=== PATIENT | male | born 1945 | race Caucasian/White ===

== ENCOUNTER 2021-09-02 11:46 | Emergency (ER) | payer MEDICARE, OTHER ==
[2021-09-02 12:00] VITALS: RESP 18
[2021-09-02 12:38] LABS: Basophils # (A) 0.1 k/uL (0-0.2); Basophils % (A) 1 %; Eosinophils # (A) 0.1 k/uL (0-0.7); Eosinophils % (A) 2 %; HCT 26.2 % (39.0-53.0); Hypochromasia Slight; Lymphocytes # (A) 1.1 k/uL (1.0-4.8); Lymphocytes % (A) 16 %; MCH 32.9 pg (25.0-35.0); MCHC 30.6 g/dL (31.0-37.0); MCV 107.4 fL (80.0-100.0); Macrocytosis Moderate; Mean Platelet Volume 7.7; Monocytes # (A) 0.4 k/uL (0-1.0); Monocytes % (A) 6 %; Neutrophils # (A) 5.3 k/uL (1.3-7.7); Neutrophils % (A) 74 %; Platelet Count 395 k/uL (150-450); RBC 2.44 m/uL (4.30-5.90); RDW 13.1 % (11.5-15.5); WBC 7.3 k/uL (3.8-10.6)
[2021-09-02 12:49] LABS: Total Bilirubin 0.3 mg/dL (0.2-1.3); Total Protein 6.6 g/dL (6.3-8.2)
--- NOTE | 2021-09-02 12:58 | ED ---
General Adult HPI - General Chief complaint: Recheck/Abnormal Lab/Rx Stated complaint: ABN labs Time Seen by Provider: 09/02/21 12:29 Source: patient, RN notes reviewed Mode of arrival: ambulatory Limitations: no limitations - History of Present Illness Initial comments: 76-year-old male presents emergency Department with chief complaint of abnormal labs. Patient states he received a phone call today stating that his potassium from yesterday was 7.0. Patient has no complaints. Patient does state that he has some renal dysfunction which she is followed by nephrology is not on dialysis. He states every morning Wednesday he takes symptoms her medication to help with that. Patient denies any palpitations no recent nausea vomiting diarrhea constipation does not take any potassium supplements. - Related Data Allergies Allergy/AdvReac Type Severity Reaction Status Date / Time No Known Allergies Allergy Verified 09/02/21 12:00 Review of Systems ROS Statement: Those systems with pertinent positive or pertinent negative responses have been documented in the HPI. ROS Other: All systems not noted in ROS Statement are negative. Past Medical History Past Medical History: Diabetes Mellitus, Myocardial Infarction ([place]) History of Any Multi-Drug Resistant Organisms: None Reported Past Surgical History: Heart Catheterization Additional Past Surgical History / Comment(s): upper/lower scope. Past Psychological History: No Psychological Hx Reported Smoking Status: Current every day smoker Past Alcohol Use History: Occasional Past Drug Use History: None Reported General Exam Limitations: no limitations General appearance: alert, in no apparent distress Head exam: Present: atraumatic, normocephalic, normal inspection Eye exam: Present: normal appearance, PERRL, EOMI. Absent: scleral icterus, conjunctival injection, periorbital swelling ENT exam: Present: normal exam, normal oropharynx, mucous membranes moist Neck exam: Present: normal inspection, full ROM. Absent: tenderness, meningismus, lymphadenopathy Respiratory exam: Present: normal lung sounds bilaterally. Absent: respiratory distress, wheezes, rales, rhonchi, stridor Cardiovascular Exam: Present: regular rate, normal rhythm, normal heart sounds. Absent: systolic murmur, diastolic murmur, rubs, gallop, clicks Neurological exam: Present: alert, oriented X3, CN II-XII intact Skin exam: Present: warm, dry, intact, normal color. Absent: rash Course Vital Signs 09/02/21 11:57 Temperature 98 F Pulse Rate 68 Respiratory 18 Rate Blood Pressure 185/69 O2 Sat by Pulse 100 Oximetry EKG Findings - EKG Comments: EKG Findings:: EKG performed at 1207 sinus rhythm with rate of 62, FL 180 QRS 105 QT/QTC 404/410 Medical Decision Making - Medical Decision Making 76-year-old male presented for hyperkalemia. Potassium 6.5. Patient will require multiple medications, treatment for hyperkalemia. Patiently admitted for recheck and meds. - Lab Data Result diagrams: 09/02/21 12:28 09/02/21 12:28 Lab Results 09/02/21 09/02/21 Range/Units 12:28 12:28 WBC 7.3 (3.8-10.6) k/uL RBC 2.44 L (4.30-5.90) m/uL Hgb 8.0 L (13.0-17.5) gm/dL Hct 26.2 L (39.0-53.0) % MCV 107.4 H (80.0-100.0) fL MCH 32.9 (25.0-35.0) pg MCHC 30.6 L (31.0-37.0) g/dL RDW 13.1 (11.5-15.5) % Plt Count 395 (150-450) k/uL MPV 7.7 Neutrophils % 74 % Lymphocytes % 16 % Monocytes % 6 % Eosinophils % 2 % Basophils % 1 % Neutrophils # 5.3 (1.3-7.7) k/uL Lymphocytes # 1.1 (1.0-4.8) k/uL Monocytes # 0.4 (0-1.0) k/uL Eosinophils # 0.1 (0-0.7) k/uL Basophils # 0.1 (0-0.2) k/uL Hypochromasia Slight Macrocytosis Moderate Sodium 138 (137-145) mmol/L Potassium 6.5 H* (3.5-5.1) mmol/L Chloride 110 H (98-107) mmol/L Carbon Dioxide 20 L (22-30) mmol/L Anion Gap 8 mmol/L BUN 62 H (9-20) mg/dL Creatinine 2.48 H (0.66-1.25) mg/dL Est GFR (CKD-EPI)AfAm 29 (>60 ml/min/1.73 sqM) Est GFR (CKD-EPI)NonAf 25 (>60 ml/min/1.73 sqM) Glucose 227 H (74-99) mg/dL Calcium 9.0 (8.4-10.2) mg/dL Total Bilirubin 0.3 (0.2-1.3) mg/dL AST 23 (17-59) U/L ALT 31 (4-49) U/L Alkaline Phosphatase 62 (38-126) U/L Total Protein 6.6 (6.3-8.2) g/dL Albumin 4.0 (3.5-5.0) g/dL Disposition Clinical Impression: Hyperkalemia Disposition: ADMITTED IP TO THIS HOSP Condition: Fair Referrals: Kirby Meng MD [Primary Care Provider] - 1-2 days Time of Disposition: 13:19
[2021-09-02 12:59] LABS: Potassium 6.5 mmol/L (3.5-5.1)
[2021-09-02] MEDS ORDERED: SODIUM POLYSTYRENE SULFONATE 15 GM/60 ML BOTTLE PO ONE (13:17)
[2021-09-02] MEDS ORDERED: DEXTROSE 50% SYRINGE 50 ML IVP ONE (13:17)
[2021-09-02] MEDS ORDERED: INSULIN REGULAR 100 UNIT/ML VIAL (IV) IV ONE (13:17)
[2021-09-02] MEDS ORDERED: NALOXONE 0.4 MG/ML 1 ML VIAL IV PRN (13:19)
[2021-09-02] MEDS ORDERED: ACETAMINOPHEN TAB 325 MG TAB PO PRN (13:19)
[2021-09-02] MEDS ORDERED: ALBUTEROL NEB (CONC) 2.5 MG/0.5 ML INHALATION ONE (13:24)
--- NOTE | 2021-09-02 13:26 | ED ---
Medical Decision Making - Medical Decision Making I did discuss case with . recommends patient receive medications while recheck tomorrow. - Lab Data Result diagrams: 09/02/21 12:28 09/02/21 12:28 Lab Results 09/02/21 09/02/21 Range/Units 12:28 12:28 WBC 7.3 (3.8-10.6) k/uL RBC 2.44 L (4.30-5.90) m/uL Hgb 8.0 L (13.0-17.5) gm/dL Hct 26.2 L (39.0-53.0) % MCV 107.4 H (80.0-100.0) fL MCH 32.9 (25.0-35.0) pg MCHC 30.6 L (31.0-37.0) g/dL RDW 13.1 (11.5-15.5) % Plt Count 395 (150-450) k/uL MPV 7.7 Neutrophils % 74 % Lymphocytes % 16 % Monocytes % 6 % Eosinophils % 2 % Basophils % 1 % Neutrophils # 5.3 (1.3-7.7) k/uL Lymphocytes # 1.1 (1.0-4.8) k/uL Monocytes # 0.4 (0-1.0) k/uL Eosinophils # 0.1 (0-0.7) k/uL Basophils # 0.1 (0-0.2) k/uL Hypochromasia Slight Macrocytosis Moderate Sodium 138 (137-145) mmol/L Potassium 6.5 H* (3.5-5.1) mmol/L Chloride 110 H (98-107) mmol/L Carbon Dioxide 20 L (22-30) mmol/L Anion Gap 8 mmol/L BUN 62 H (9-20) mg/dL Creatinine 2.48 H (0.66-1.25) mg/dL Est GFR (CKD-EPI)AfAm 29 (>60 ml/min/1.73 sqM) Est GFR (CKD-EPI)NonAf 25 (>60 ml/min/1.73 sqM) Glucose 227 H (74-99) mg/dL Calcium 9.0 (8.4-10.2) mg/dL Total Bilirubin 0.3 (0.2-1.3) mg/dL AST 23 (17-59) U/L ALT 31 (4-49) U/L Alkaline Phosphatase 62 (38-126) U/L Total Protein 6.6 (6.3-8.2) g/dL Albumin 4.0 (3.5-5.0) g/dL Disposition Clinical Impression: Hyperkalemia Disposition: HOME SELF-CARE Condition: Stable Is patient prescribed a controlled substance at d/c from ED?: No Time of Disposition: 13:25
[2021-09-02] MEDS ORDERED: SODIUM CHLORIDE 0.9% 1,000 ML IV SCH (13:30)
[2021-09-02] MEDS ORDERED: CALCIUM GLUCONATE IN NACL 1 GM in SALINE 1 100ML.BAG IVPB ONE (13:45)
[2021-09-02] MEDS ORDERED: ALBUTEROL NEBULIZED 2.5 MG/3 ML INHALATION STA (14:01)
[2021-09-02 14:32] VITALS: PULSE 84
[2021-09-02 14:35] VITALS: BP 188/71; TEMP 97.6
== END 2021-09-02 14:40 | disposition home or self-care (01) ==
LOC: EC 11:46 → UNDOADMIN 13:17 → 3SCARD 13:17 → EC 14:40
DX: E87.5 Hyperkalemia (principal); E11.9 Type 2 diabetes mellitus without complications; I25.2 Old myocardial infarction; F17.200 Nicotine dependence, unspecified, uncomplicated
CPT/HCPCS: 99284; 96374; 96375 ×2; 36415; 94640 ×2; 93005; 80053; 85025; J0610

== ENCOUNTER 2021-10-28 06:55 | Day surgery (SDC) | payer MEDICARE, OTHER ==
[2021-10-24 14:43] VITALS: BMI 22.0
[~2021-10-28 06:55] MED LIST: LACTATED RINGERS 1,000 ML IV SCH; LIDOCAINE 1% (10MG/ML) FOR IV START INTRADERMA PRN
[2021-10-28 07:29] VITALS: TEMP 97.2
[2021-10-28 07:54] LABS: Glucose,Whole Blood 180 mg/dL (75-99)
[2021-10-28] MEDS ORDERED: LIDOCAINE 2% INJ 20 MG/ML (2 ML VIAL) ONE (08:19)
[2021-10-28] MEDS ORDERED: PROPOFOL 10 MG/ML 20 ML VIAL IV ONE (08:19)
[2021-10-28] MEDS ORDERED: fentaNYL (PF) 50 MCG/ML 2 ML AMP ONE (08:19)
--- NOTE | 2021-10-28 08:57 | P.PCN ---
Date of Procedure: 10/28/21 Procedure(s) Performed: Brief history: Patient is a pleasant 76-year-old white female scheduled for an elective upper endoscopy as well as colonoscopy as a part of evaluation of recurrent iron deficiency anemia. 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 In the last 6 months he received 3 years of PRBC transfusion for recurrent iron deficiency anemia and hence is scheduled for repeat upper endoscopy as well as colonoscopy today. Procedure performed: Esophagogastroduodenoscopy with biopsy and cautery Colonoscopy with cautery and argon plasma coagulation/snare polypectomy Preoperative diagnosis: Recurrent iron deficiency anemia and history of gastric and cecal AVMs Anesthesia: MAC Procedure: After informed consent was obtained from the patient was brought into the endoscopy unit and IV sedation was administered by anesthesia under continuous monitoring. Initially upper endoscopy was done. The Olympus GF 160 video endoscope was inserted inserted into the mouth and esophagus intubated without any difficulty and was gradually advanced into the stomach and duodenum and carefully examined. The bulb and second part of the duodenum appeared normal. Biopsies were done from the duodenum to rule out celiac disease. The scope was then withdrawn into the stomach adequately insufflated with air and upon careful examination the antrum appeared normal. In the body the stomach daily 5 mm gastric AVMs with no active bleeding which were cauterized. The rest of the body, cardia and fundus appeared normal. The scope was then withdrawn into the esophagus. The GE junction was located at 40 cm to the incisors. It appeared regular with no erythema erosions or ulcerations. Rest of the esophagus appeared normal. Patient tolerated the procedure well. At this time the patient continued to remain sedation. Initial digital rectal examination was normal. Olympus CF 160 video colonoscope was then inserted into the rectum and gradually advanced to the cecum without any difficulty. Careful examination was performed as the scope was gradually being withdrawn. The prep was excellent. In the base of the cecum there was a 3-4 mm nonbleeding AVM that was cauterized using a photo. Adjacent to this area there was a 2 cm nonbleeding arteriovenous malformation noted which was coagulated using argon plasma with good hemostasis. In the hepatic flexure there was a 1 mm broad- based polyp removed by snare polypectomy. Rest of the transverse colon, descending colon, sigmoid colon and rectum appeared normal. Retroflexion was performed in the rectum and no lesions were noted. Patient tolerated the procedure well. Impression: 1. Upper endoscopy revealed two 5 mm nonbleeding gastric AVMs status post cautery as described above 2. Colonoscopy revealed 5 mm and 2 cm nonbleeding cecal AVMs status post cautery using a gold and argon plasma coagulation as described above. 1 cm hepatic flexure polyp status post polypectomy Recommendations: Findings of this examination were discussed with the patient as well a family. He was advised to follow with the biopsy results. He will continue with iron supplements and iron infusions. Follow up in office as needed.
[2021-10-28 09:15] VITALS: BP 160/72; PULSE 59; RESP 16
== END 2021-10-28 09:36 | disposition home or self-care (01) ==
LOC: ORWHC2ENDO 06:55
PROVIDERS: ATTEND Internal Medicine Gastroenterology
DX: D12.3 Benign neoplasm of transverse colon (principal); Q27.39 Arteriovenous malformation, other site; D50.9 Iron deficiency anemia, unspecified; I25.2 Old myocardial infarction; E78.5 Hyperlipidemia, unspecified; F17.210 Nicotine dependence, cigarettes, uncomplicated; E11.22 Type 2 diabetes mellitus with diabetic chronic kidney disease; I12.9 Hypertensive chronic kidney disease with stage 1 through stage 4 chronic kidney disease, or unspecified chronic kidney disease; N18.4 Chronic kidney disease, stage 4 (severe); K21.9 Gastro-esophageal reflux disease without esophagitis; Z79.84 Long term (current) use of oral hypoglycemic drugs; Z79.899 Other long term (current) drug therapy
CPT/HCPCS: 88305; 45385; 43239; 45388; 43270; J3010; J2704; J2001

== ENCOUNTER 2021-11-21 10:08 | Emergency (ER) | payer MEDICARE, OTHER ==
[2021-11-21 10:13] VITALS: RESP 16
[2021-11-21] MEDS ORDERED: SODIUM CHLORIDE 0.9% 1,000 ML IV STA (10:33)
--- NOTE | 2021-11-21 11:18 | ED ---
General Adult HPI - General Chief complaint: Recheck/Abnormal Lab/Rx Stated complaint: abn labs Time Seen by Provider: 11/21/21 10:14 Source: patient Mode of arrival: ambulatory Limitations: no limitations - History of Present Illness Initial comments: Patient is a 76-year-old male with a past medical history significant for iron deficiency anemia, gastric and cecal AVMs, and CKD stage IV who presents to the emergency department for evaluation of low hemogloglobin. 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 Patient states he got his blood drawn yesterday due to feeling weak and lightheaded over the past 2 weeks. Patient states he receives iron infusions, last was yesterday as well as takes oral iron pills. Patient denies fever, chills, shortness of breath, chest pain, abdominal pain, back pain, nausea, vomiting, blood in the urine, and blood in the stool. Admits to prior history of GI bleed. Has received blood transfusions in the past. Denies blood thinner use. States he takes Veltassa for high potassium however stopped the medication 1 week ago because urinating so much was interfering with his activities of daily living. Patient still making urine and denies dialysis. I reviewed the patient's history. He follows with GI specialist Dr. Almaguer. Patient had an elective upper endoscopy and colonoscopy on October 28 of this year for evaluation of recurrent iron deficiency anemia. At this time patient had history of gastric and cecal AVMs found in October 2020 which were cauterized. His repeat scope revealed 2 5 mm nonbleeding gastric AVMs that were cauterized as well as a 5 mm and 2 cm nonbleeding cecal AVM that were cauterized. A 1 cm hepatic flexure polyp was also found which was removed and negative for histologic abnormality on biopsy. - Related Data Home Medications Medication Instructions Recorded Confirmed Ergocalciferol [Vitamin D2 (1250 1,250 mcg PO WEEKLY 10/24/21 10/24/21 Mcg = 40313 Iu)] Ferrous Sulfate [Iron] 325 mg PO BID 10/24/21 10/24/21 Pantoprazole [Protonix] 40 mg PO BID 10/24/21 10/24/21 Patiromer Calcium Sorbitex 1 packet PO DAILY 10/24/21 10/24/21 [Veltassa] Pioglitazone [Actos] 15 mg PO DAILY 10/24/21 10/24/21 Rosuvastatin [Crestor] 0.5 tab PO DAILY 10/24/21 10/24/21 Sodium Bicarbonate 650 mg PO BID 10/24/21 10/24/21 Torsemide [Demadex] 0.5 tab PO DAILY 10/24/21 10/24/21 carvediloL [Coreg] 25 mg PO DAILY 10/24/21 10/24/21 glipiZIDE 5 mg PO BID 10/24/21 10/24/21 Allergies Allergy/AdvReac Type Severity Reaction Status Date / Time No Known Allergies Allergy Verified 11/21/21 10:09 Review of Systems ROS Statement: Those systems with pertinent positive or pertinent negative responses have been documented in the HPI. ROS Other: All systems not noted in ROS Statement are negative. Past Medical History Past Medical History: Diabetes Mellitus, GERD/Reflux, Hyperlipidemia, Hypertension, Myocardial Infarction ([place]), Renal Disease Last Myocardial Infarction Date:: UNSURE BUT AROUND 08/2021 History of Any Multi-Drug Resistant Organisms: None Reported Past Surgical History: Heart Catheterization Additional Past Surgical History / Comment(s): upper/lower scope. Past Anesthesia/Blood Transfusion Reactions: No Reported Reaction Past Psychological History: No Psychological Hx Reported Smoking Status: Current every day smoker Past Alcohol Use History: Occasional Past Drug Use History: None Reported General Exam Limitations: no limitations General appearance: alert, in no apparent distress Head exam: Present: atraumatic, normocephalic, normal inspection Eye exam: Present: normal appearance, PERRL, EOMI. Absent: scleral icterus, conjunctival injection, periorbital swelling Respiratory exam: Present: normal lung sounds bilaterally. Absent: respiratory distress, wheezes, rales, rhonchi, stridor Cardiovascular Exam: Present: regular rate, normal rhythm, normal heart sounds. Absent: systolic murmur, diastolic murmur, rubs, gallop, clicks GI/Abdominal exam: Present: soft, normal bowel sounds. Absent: distended, tenderness, guarding, rebound, rigid Rectal exam: Present: hemorrhoids (1 external ) Back exam: Present: normal inspection Neurological exam: Present: alert, oriented X3, CN II-XII intact Psychiatric exam: Present: normal affect, normal mood Skin exam: Present: warm, dry, intact, normal color. Absent: rash, pallor Course Vital Signs 11/21/21 11/21/21 11/21/21 10:09 11:03 11:52 Temperature 97.9 F Pulse Rate 78 64 69 Respiratory 16 16 16 Rate Blood Pressure 144/63 145/62 159/60 O2 Sat by Pulse 97 99 96 Oximetry 11/21/21 13:05 Temperature 98.7 F Pulse Rate 63 Respiratory 16 Rate Blood Pressure 164/65 O2 Sat by Pulse 98 Oximetry EKG Findings - EKG Comments: EKG Findings:: EKG taken at 10:45. Sinus rhythm, no ST segment or T-wave abnormalities. Ventricular rate 65. WA interval 182. QRS duration 100. QTC 408 Medical Decision Making - Medical Decision Making This is a 76-year-old male with iron deficiency anemia on supplemental iron and see kidney stage IV who presents to the emergency department for evaluation of low hemoglobin. Thorough history and examination were performed. Patient is well-appearing. Skin is normal in color without pallor. Denies chest pain and shortness of breath. Rectal exam revealed 1 external hemorrhoid and no palpation of internal hemorrhoids. Laboratory studies obtained. Creatinine is elevated at 2.63, consistent with patient's CKD stage IV. Potassium is elevated at 5.9. Hemoglobin is low at 6.4 Stool occult is positive. Patient received 1 unit of packed red blood cells in the emergency department. Unfortunately we do not have GI coverage today. Case discussed with Dr. Dela Cruz who declines admitting this patient to her service. Results discussed with patient and his . Patient verbalizes understanding and is agreeable to transfer for GI services. Case discussed with Dr. Becerra at [facility] who is agreeable to transfer for further evaluation and management of GI bleed. Patient transferred in stable condition. Dr. Hairston is my attending. - Lab Data Result diagrams: 11/21/21 10:48 11/21/21 10:48 Lab Results 11/21/21 11/21/21 11/21/21 Range/Units 10:48 10:48 10:48 WBC 6.4 (3.8-10.6) k/uL RBC 2.02 L (4.30-5.90) m/uL Hgb 6.4 L* (13.0-17.5) gm/dL Hct 20.2 L (39.0-53.0) % MCV 100.1 H (80.0-100.0) fL MCH 31.6 (25.0-35.0) pg MCHC 31.6 (31.0-37.0) g/dL RDW 15.8 H (11.5-15.5) % Plt Count 305 (150-450) k/uL MPV 7.4 Neutrophils % 74 % Lymphocytes % 14 % Monocytes % 6 % Eosinophils % 1 % Basophils % 1 % Neutrophils # 4.7 (1.3-7.7) k/uL Lymphocytes # 0.9 L (1.0-4.8) k/uL Monocytes # 0.4 (0-1.0) k/uL Eosinophils # 0.1 (0-0.7) k/uL Basophils # 0.0 (0-0.2) k/uL Hypochromasia Slight Macrocytosis Slight PT (9.0-12.0) sec INR (<1.2) APTT (22.0-30.0) sec Sodium 136 L (137-145) mmol/L Potassium 5.9 H (3.5-5.1) mmol/L Chloride 110 H (98-107) mmol/L Carbon Dioxide 21 L (22-30) mmol/L Anion Gap 5 mmol/L BUN 51 H (9-20) mg/dL Creatinine 2.63 H (0.66-1.25) mg/dL Est GFR (CKD-EPI)AfAm 27 (>60 ml/min/1.73 sqM) Est GFR (CKD-EPI)NonAf 23 (>60 ml/min/1.73 sqM) Glucose 163 H (74-99) mg/dL Calcium 8.6 (8.4-10.2) mg/dL Magnesium 2.0 (1.6-2.3) mg/dL Total Bilirubin 0.2 (0.2-1.3) mg/dL AST 18 (17-59) U/L ALT 21 (4-49) U/L Alkaline Phosphatase 63 (38-126) U/L Total Protein 5.7 L (6.3-8.2) g/dL Albumin 3.5 (3.5-5.0) g/dL Stool Occult Blood Positive (Negative) Blood Type Blood Type Confirm Blood Type Recheck Bld Type Recheck Status Antibody Screen Crossmatch Spec Expiration Date 11/21/21 11/21/21 11/21/21 Range/Units 10:54 10:59 11:02 WBC (3.8-10.6) k/uL RBC (4.30-5.90) m/uL Hgb (13.0-17.5) gm/dL Hct (39.0-53.0) % MCV (80.0-100.0) fL MCH (25.0-35.0) pg MCHC (31.0-37.0) g/dL RDW (11.5-15.5) % Plt Count (150-450) k/uL MPV Neutrophils % % Lymphocytes % % Monocytes % % Eosinophils % % Basophils % % Neutrophils # (1.3-7.7) k/uL Lymphocytes # (1.0-4.8) k/uL Monocytes # (0-1.0) k/uL Eosinophils # (0-0.7) k/uL Basophils # (0-0.2) k/uL Hypochromasia Macrocytosis PT 10.4 (9.0-12.0) sec INR 0.9 (<1.2) APTT 20.9 L (22.0-30.0) sec Sodium (137-145) mmol/L Potassium (3.5-5.1) mmol/L Chloride (98-107) mmol/L Carbon Dioxide (22-30) mmol/L Anion Gap mmol/L BUN (9-20) mg/dL Creatinine (0.66-1.25) mg/dL Est GFR (CKD-EPI)AfAm (>60 ml/min/1.73 sqM) Est GFR (CKD-EPI)NonAf (>60 ml/min/1.73 sqM) Glucose (74-99) mg/dL Calcium (8.4-10.2) mg/dL Magnesium (1.6-2.3) mg/dL Total Bilirubin (0.2-1.3) mg/dL AST (17-59) U/L ALT (4-49) U/L Alkaline Phosphatase (38-126) U/L Total Protein (6.3-8.2) g/dL Albumin (3.5-5.0) g/dL Stool Occult Blood (Negative) Blood Type A Positive Blood Type Confirm A Positive Blood Type Recheck No Previous Record Bld Type Recheck Status CABO Indicated Antibody Screen NEGATIVE Crossmatch See Detail Spec Expiration Date 11/24/20212353 Disposition Clinical Impression: Personal history of arterial venous malformation (AVM), Iron deficiency anemia, Generalized weakness, Occult GI bleeding, Lightheadedness, Hyperkalemia Disposition: OTHER INSTITUTION NOT DEFINED Condition: Stable Referrals: Carlos Taveras MD [Primary Care Provider] - 1-2 days Decision Time: 13:12 - Out of Hospital Transfer - Req. Specs Out of Hospital Transfer - Requested Specifics: Other Emergency Center ([facility] [place])
[2021-11-21 11:19] LABS: Basophils % (A) 1 %; Eosinophils # (A) 0.1 k/uL (0-0.7); Eosinophils % (A) 1 %; HCT 20.2 % (39.0-53.0); Hypochromasia Slight; Lymphocytes # (A) 0.9 k/uL (1.0-4.8); Lymphocytes % (A) 14 %; MCH 31.6 pg (25.0-35.0); MCHC 31.6 g/dL (31.0-37.0); MCV 100.1 fL (80.0-100.0); Macrocytosis Slight; Mean Platelet Volume 7.4; Monocytes # (A) 0.4 k/uL (0-1.0); Monocytes % (A) 6 %; Neutrophils # (A) 4.7 k/uL (1.3-7.7); Neutrophils % (A) 74 %; Platelet Count 305 k/uL (150-450); RBC 2.02 m/uL (4.30-5.90); RDW 15.8 % (11.5-15.5); WBC 6.4 k/uL (3.8-10.6)
[2021-11-21 11:21] LABS: Albumin 3.5 g/dL (3.5-5.0); Calcium 8.6 mg/dL (8.4-10.2); Potassium 5.9 mmol/L (3.5-5.1); Total Bilirubin 0.2 mg/dL (0.2-1.3); Total Protein 5.7 g/dL (6.3-8.2)
[2021-11-21] MEDS ORDERED: PANTOPRAZOLE 40 MG/10 ML VIAL IVP STA (11:27)
[2021-11-21 11:37] LABS: HGB 6.4 gm/dL (13.0-17.5)
[2021-11-21 12:20] LABS: INR 0.9 (<1.2); Prothrombin Time 10.4 sec (9.0-12.0)
[2021-11-21 12:37] LABS: Partial Thromboplastin Time 20.9 sec (22.0-30.0)
[2021-11-21 13:24] VITALS: BP 166/66; PULSE 64; TEMP 98.4
== END 2021-11-21 13:38 | disposition other institution (70) ==
LOC: EC 10:08
DX: E11.9 Type 2 diabetes mellitus without complications (principal); E78.5 Hyperlipidemia, unspecified; I10 Essential (primary) hypertension; K21.9 Gastro-esophageal reflux disease without esophagitis; Z79.83 Long term (current) use of bisphosphonates; F17.200 Nicotine dependence, unspecified, uncomplicated
CPT/HCPCS: 99283 ×2; 96374 ×2; 96361 ×2; 36430; 36415; 93005; 86900; 86901; 80053; 83735; 85025; 85610; 85730; 86850; 86920; 82272; P9016; C9113

== ENCOUNTER → 2021-12-11 | Outpatient (CLI) | payer MEDICARE, OTHER ==
--- NOTE | 2021-12-15 09:15 | US ---
EXAMINATION TYPE: US arterial LE multi level DATE OF EXAM: 12/11/2021 11:10 AM CLINICAL HISTORY: I73.9 Peripheral vascular disease, unspecified. PVD, cramping in BLE. History of hy pertension and diabetes. Bilateral lower extremity cramping when walking Doppler Waveforms: Right: Monophasic Left: Monophasic Ankle-Brachial Indices: Right: 1.2 Left: 0.86 Toe Brachial Indices: Right: 0.36 Left: 0.26 IMPRESSION: Diminished TBI values bilaterally with loss of phasicity is abnormal, at least moderate peripheral arterial disease in the bilateral feet are present.
== END | disposition home or self-care (01) ==
LOC: RADUSWWP 09:33
PROVIDERS: ATTEND Internal Medicine
DX: I70.203 Unspecified atherosclerosis of native arteries of extremities, bilateral legs (principal)
CPT/HCPCS: 93923

== ENCOUNTER → 2021-12-22 | Day surgery (SDC) | payer MEDICARE, OTHER ==
[2021-12-18 10:40] VITALS: BMI 22.6
[~2021-12-22] MED LIST changes: -LACTATED RINGERS 1,000 ML IV SCH; -LIDOCAINE 1% (10MG/ML) FOR IV START INTRADERMA PRN; +SIMETHICONE 40 MG/0.6 ML DROPS 2,000 MG/30 ML BOTTLE PO ONE
[2021-12-22 06:39] VITALS: BP 182/75; PULSE 67; RESP 18; TEMP 97.8
[2021-12-22 06:44] LABS: Glucose,Whole Blood 112 mg/dL (70-110)
== END ==
LOC: ORWHC2ENDO 06:20
PROVIDERS: ATTEND Internal Medicine Gastroenterology
DX: D64.9 Anemia, unspecified (principal); Z79.899 Other long term (current) drug therapy; Z79.84 Long term (current) use of oral hypoglycemic drugs
CPT/HCPCS: 91110

== ENCOUNTER 2021-12-28 10:46 | Inpatient (IN) | payer MEDICARE, OTHER ==
[2021-12-28] MEDS ORDERED: SODIUM CHLORIDE 0.9% 1,000 ML IV STA ×2 (12:39→14:21)
--- NOTE | 2021-12-28 12:46 | ED ---
GI Bleed HPI - General Chief complaint: GI Bleed Stated complaint: Rectal bleeding Time Seen by Provider: 12/28/21 12:14 Source: patient, RN notes reviewed Mode of arrival: wheelchair Limitations: no limitations - History of Present Illness Initial comments: 76-year-old male who is being worked up for GI bleeding Had some cauterization done of lesions in the colon and stomach in the past who states he had the onset 2 days ago of blood per rectum states was bright red he's felt tired and weak lightheaded with upright movement and ambulation. No chest pain no tachycardia no overt shortness of breath reported no fevers chills sweats. No overt abdominal pain. No rectal pain. He states she's had an ultrasound done of his lower extremities and also had a camper that he swallowed with unknown results this time. Per family he does appear pale compared with usual color. Review of old charting shows that the patient has had a history of anemia in the past. He also has a history of chronic kidney disease. The patient and family also note some ankle edema the patient states he hasn't taken his water pill. - Related Data Home Medications Medication Instructions Recorded Confirmed Ergocalciferol [Vitamin D2 (1250 1,250 mcg PO GA 10/24/21 12/18/21 Mcg = 87437 Iu)] Ferrous Sulfate [Iron] 325 mg PO BID 10/24/21 12/18/21 Pantoprazole [Protonix] 40 mg PO BID 10/24/21 12/18/21 Pioglitazone [Actos] 15 mg PO DAILY 10/24/21 12/18/21 Rosuvastatin [Crestor] 0.5 tab PO DAILY 10/24/21 12/18/21 Sodium Bicarbonate 650 mg PO BID 10/24/21 12/18/21 Torsemide [Demadex] 0.5 tab PO DAILY 10/24/21 12/18/21 carvediloL [Coreg] 25 mg PO DAILY 10/24/21 12/18/21 glipiZIDE 5 mg PO BID 10/24/21 12/18/21 Allergies Allergy/AdvReac Type Severity Reaction Status Date / Time No Known Allergies Allergy Verified 12/28/21 10:52 Review of Systems ROS Statement: Those systems with pertinent positive or pertinent negative responses have been documented in the HPI. ROS Other: All systems not noted in ROS Statement are negative. Past Medical History Past Medical History: Diabetes Mellitus, GERD/Reflux, Hyperlipidemia, Hypertension, Myocardial Infarction ([place]), Renal Disease Last Myocardial Infarction Date:: UNSURE BUT AROUND 08/2021 History of Any Multi-Drug Resistant Organisms: None Reported Past Surgical History: Heart Catheterization Additional Past Surgical History / Comment(s): upper/lower scope. Past Anesthesia/Blood Transfusion Reactions: No Reported Reaction Past Psychological History: No Psychological Hx Reported Smoking Status: Current every day smoker Past Alcohol Use History: None Reported Past Drug Use History: None Reported - Past Family History Mother Family Medical History: No Reported History General Exam - General Exam Comments Initial Comments: this is a well-developed well-nourished awake alert oriented 4 male Limitations: no limitations General appearance: alert, in no apparent distress Head exam: Present: atraumatic, normocephalic, normal inspection Eye exam: Present: normal appearance, PERRL, EOMI, other. Absent: scleral icterus, conjunctival injection, periorbital swelling ENT exam: Present: normal exam, mucous membranes moist Neck exam: Present: normal inspection, full ROM, other (No stridor JVD or bruits). Absent: tenderness, meningismus, lymphadenopathy Respiratory exam: Present: normal lung sounds bilaterally. Absent: respiratory distress, wheezes, rales, rhonchi, stridor Cardiovascular Exam: Present: regular rate, normal rhythm, normal heart sounds. Absent: systolic murmur, diastolic murmur, rubs, gallop, clicks GI/Abdominal exam: Present: soft, normal bowel sounds. Absent: distended, tenderness, guarding, rebound, rigid Rectal exam: Present: normal inspection, heme (+) stool (Heme-positive brown st ool) Extremities exam: Present: normal inspection, full ROM, normal capillary refill, pedal edema (Trace edema to both ankles). Absent: tenderness, joint swelling, calf tenderness Back exam: Present: normal inspection Neurological exam: Present: alert, oriented X3, CN II-XII intact Psychiatric exam: Present: normal affect, normal mood Skin exam: Present: warm, dry, intact, pallor. Absent: rash Course Vital Signs 12/28/21 12/28/21 12/28/21 10:50 15:06 15:16 Temperature 97.6 F 97 F L 97 F L Pulse Rate 67 71 72 Respiratory 18 18 16 Rate Blood Pressure 169/58 144/74 152/71 O2 Sat by Pulse 99 Oximetry 12/28/21 12/28/21 15:40 15:57 Temperature Pulse Rate 66 73 Respiratory Rate Blood Pressure O2 Sat by Pulse Oximetry - Reevaluation(s) Reevaluation #1: 12/28/21 16:04 I did a long session with patient and multiple family members regarding findings patient is demonstrated evidence of anemia he had heme positive brown stool no bright red blood noted on my exam. Hemoglobin level was 6.3 he has chronic renal insufficiency he had elevated potassium. After long discussion the patient will be admitted to this facility to Dr. Espino with Dr. Meng for medical management. Patient will get 2 units of blood IV hydration and treatment for hyperkalemia. Patient was initially wanting to go home but was convinced to stay for the complete evaluation. Medical Decision Making - Medical Decision Making Patient is hemodynamically stable he is getting blood transfusion. He will be admitted to Dr. Espino with a scope planned for tomorrow. - Lab Data Result diagrams: 12/28/21 11:44 12/28/21 11:44 Lab Results 12/28/21 12/28/21 12/28/21 Range/Units 11:42 11:44 11:44 WBC 6.6 (3.8-10.6) k/uL RBC 1.93 L (4.30-5.90) m/uL Hgb 6.3 L* (13.0-17.5) gm/dL Hct 20.8 L (39.0-53.0) % MCV 107.5 H D (80.0-100.0) fL MCH 32.6 (25.0-35.0) pg MCHC 30.4 L (31.0-37.0) g/dL RDW 15.7 H (11.5-15.5) % Plt Count 337 (150-450) k/uL MPV 7.7 Neutrophils % 73 % Lymphocytes % 16 % Monocytes % 6 % Eosinophils % 2 % Basophils % 1 % Neutrophils # 4.8 (1.3-7.7) k/uL Lymphocytes # 1.1 (1.0-4.8) k/uL Monocytes # 0.4 (0-1.0) k/uL Eosinophils # 0.1 (0-0.7) k/uL Basophils # 0.0 (0-0.2) k/uL Manual Slide Review Performed Hypochromasia Moderate Poikilocytosis (manual Present Anisocytosis (manual) Present Macrocytosis Marked A APTT 20.6 L (22.0-30.0) sec Sodium (137-145) mmol/L Potassium (3.5-5.1) mmol/L Chloride (98-107) mmol/L Carbon Dioxide (22-30) mmol/L Anion Gap mmol/L BUN (9-20) mg/dL Creatinine (0.66-1.25) mg/dL Est GFR (CKD-EPI)AfAm (>60 ml/min/1.73 sqM) Est GFR (CKD-EPI)NonAf (>60 ml/min/1.73 sqM) Glucose (74-99) mg/dL Calcium (8.4-10.2) mg/dL Magnesium (1.6-2.3) mg/dL Total Bilirubin (0.2-1.3) mg/dL AST (17-59) U/L ALT (4-49) U/L Alkaline Phosphatase (38-126) U/L Ammonia (<30) umol/L Creatine Kinase (55-170) U/L Troponin I (0.000-0.034) ng/mL Total Protein (6.3-8.2) g/dL Albumin (3.5-5.0) g/dL Lipase (23-300) U/L Stool Occult Blood (Negative) Blood Type A Positive Blood Type Recheck A Pos Bld Type Recheck Status No Antibody Screen NEGATIVE Crossmatch See Detail Spec Expiration Date 12/31/2021 - 234112/28/21 12/28/21 12/28/21 Range/Units 11:44 11:44 12:43 WBC (3.8-10.6) k/uL RBC (4.30-5.90) m/uL Hgb (13.0-17.5) gm/dL Hct (39.0-53.0) % MCV (80.0-100.0) fL MCH (25.0-35.0) pg MCHC (31.0-37.0) g/dL RDW (11.5-15.5) % Plt Count (150-450) k/uL MPV Neutrophils % % Lymphocytes % % Monocytes % % Eosinophils % % Basophils % % Neutrophils # (1.3-7.7) k/uL Lymphocytes # (1.0-4.8) k/uL Monocytes # (0-1.0) k/uL Eosinophils # (0-0.7) k/uL Basophils # (0-0.2) k/uL Manual Slide Review Hypochromasia Poikilocytosis (manual Anisocytosis (manual) Macrocytosis APTT (22.0-30.0) sec Sodium 137 (137-145) mmol/L Potassium 6.1 H* (3.5-5.1) mmol/L Chloride 109 H (98-107) mmol/L Carbon Dioxide 19 L (22-30) mmol/L Anion Gap 9 mmol/L BUN 62 H (9-20) mg/dL Creatinine 2.60 H (0.66-1.25) mg/dL Est GFR (CKD-EPI)AfAm 27 (>60 ml/min/1.73 sqM) Est GFR (CKD-EPI)NonAf 23 (>60 ml/min/1.73 sqM) Glucose 228 H (74-99) mg/dL Calcium 8.3 L (8.4-10.2) mg/dL Magnesium 2.0 (1.6-2.3) mg/dL Total Bilirubin <0.1 L (0.2-1.3) mg/dL AST 15 L (17-59) U/L ALT 13 (4-49) U/L Alkaline Phosphatase 56 (38-126) U/L Ammonia (<30) umol/L Creatine Kinase 46 L (55-170) U/L Troponin I <0.012 (0.000-0.034) ng/mL Total Protein 6.1 L (6.3-8.2) g/dL Albumin 3.8 (3.5-5.0) g/dL Lipase 234 (23-300) U/L Stool Occult Blood Positive (Negative) Blood Type Blood Type Recheck Bld Type Recheck Status Antibody Screen Crossmatch Spec Expiration Date 12/28/21 Range/Units 13:47 WBC (3.8-10.6) k/uL RBC (4.30-5.90) m/uL Hgb (13.0-17.5) gm/dL Hct (39.0-53.0) % MCV (80.0-100.0) fL MCH (25.0-35.0) pg MCHC (31.0-37.0) g/dL RDW (11.5-15.5) % Plt Count (150-450) k/uL MPV Neutrophils % % Lymphocytes % % Monocytes % % Eosinophils % % Basophils % % Neutrophils # (1.3-7.7) k/uL Lymphocytes # (1.0-4.8) k/uL Monocytes # (0-1.0) k/uL Eosinophils # (0-0.7) k/uL Basophils # (0-0.2) k/uL Manual Slide Review Hypochromasia Poikilocytosis (manual Anisocytosis (manual) Macrocytosis APTT (22.0-30.0) sec Sodium (137-145) mmol/L Potassium (3.5-5.1) mmol/L Chloride (98-107) mmol/L Carbon Dioxide (22-30) mmol/L Anion Gap mmol/L BUN (9-20) mg/dL Creatinine (0.66-1.25) mg/dL Est GFR (CKD-EPI)AfAm (>60 ml/min/1.73 sqM) Est GFR (CKD-EPI)NonAf (>60 ml/min/1.73 sqM) Glucose (74-99) mg/dL Calcium (8.4-10.2) mg/dL Magnesium (1.6-2.3) mg/dL Total Bilirubin (0.2-1.3) mg/dL AST (17-59) U/L ALT (4-49) U/L Alkaline Phosphatase (38-126) U/L Ammonia <9 (<30) umol/L Creatine Kinase (55-170) U/L Troponin I (0.000-0.034) ng/mL Total Protein (6.3-8.2) g/dL Albumin (3.5-5.0) g/dL Lipase (23-300) U/L Stool Occult Blood (Negative) Blood Type Blood Type Recheck Bld Type Recheck Status Antibody Screen Crossmatch Spec Expiration Date - EKG Data -: EKG Interpreted by Me EKG shows normal: sinus rhythm EKG Comments: EKG shows sinus rhythm a 63. Interval 172 QRS duration 110 daily since QTC 460/423 nonspecific T-wave configuration this is compared to one dated 09/02/21 Disposition Clinical Impression: Lower GI bleed, Anemia, Hyperkalemia, Chronic renal insufficiency Disposition: ADMITTED IP TO THIS HOSP Condition: Fair Referrals: Kirby Meng MD [Primary Care Provider] - 1-2 days Decision Date: 12/28/21 Decision Time: 15:30
[2021-12-28 13:20] LABS: Basophils % (A) 1 %; Eosinophils # (A) 0.1 k/uL (0-0.7); Eosinophils % (A) 2 %; HCT 20.8 % (39.0-53.0); Hypochromasia Moderate; Lymphocytes # (A) 1.1 k/uL (1.0-4.8); Lymphocytes % (A) 16 %; MCH 32.6 pg (25.0-35.0); MCHC 30.4 g/dL (31.0-37.0); Macrocytosis Marked; Mean Platelet Volume 7.7; Monocytes # (A) 0.4 k/uL (0-1.0); Monocytes % (A) 6 %; Neutrophils # (A) 4.8 k/uL (1.3-7.7); Neutrophils % (A) 73 %; Platelet Count 337 k/uL (150-450); RBC 1.93 m/uL (4.30-5.90); RDW 15.7 % (11.5-15.5); WBC 6.6 k/uL (3.8-10.6)
[2021-12-28 13:24] LABS: ALT 13 U/L (4-49); AST 15 U/L (17-59); African American GFR (CKD) 27 (>60 ml/min/1.73 sqM); Albumin 3.8 g/dL (3.5-5.0); Alkaline Phosphatase 56 U/L (38-126); Anion Gap 9 mmol/L; Blood Urea Nitrogen 62 mg/dL (9-20); Calcium 8.3 mg/dL (8.4-10.2); Carbon Dioxide 19 mmol/L (22-30); Chloride 109 mmol/L (98-107); Creatine Kinase 46 U/L (55-170); Glucose 228 mg/dL (74-99); Lipase 234 U/L (23-300); Non-African American GFR(CKD) 23 (>60 ml/min/1.73 sqM); Sodium 137 mmol/L (137-145); Total Bilirubin <0.1 mg/dL (0.2-1.3); Total Protein 6.1 g/dL (6.3-8.2)
[2021-12-28 13:33] LABS: Potassium 6.1 mmol/L (3.5-5.1)
[2021-12-28 13:36] LABS: HGB 6.3 gm/dL (13.0-17.5)
[2021-12-28 13:37] LABS: MCV 107.5 fL (80.0-100.0)
[2021-12-28 13:54] LABS: Anisocytosis (M) Present; Poikilocytosis (M) Present
[2021-12-28] MEDS ORDERED: FUROSEMIDE 10 MG/ML 4 ML VIAL IV STA (14:21)
[2021-12-28] MEDS ORDERED: ALBUTEROL NEBULIZED (CONC) 20 MG, SODIUM CHLORIDE 0.9% NEBULIZ 3 ML INHALATION ONE ×2 (14:22)
[2021-12-28] MEDS ORDERED: INSULIN REGULAR 100 UNIT/ML VIAL (IV) IV ONE (14:22)
[2021-12-28] MEDS ORDERED: SODIUM POLYSTYRENE SULFONATE 15 GM/60 ML BOTTLE PO STA (14:22)
[2021-12-28] MEDS ORDERED: DEXTROSE 50% SYRINGE 50 ML IVP STA (14:23)
--- NOTE | 2021-12-28 15:48 | P.GSCN ---
History of Present Illness Consult date: 12/28/21 History of present illness: REASON FOR CONSULTATION: GI bleed HISTORY OF PRESENT ILLNESS: The patient is a 76 year old male who presents with gastrointestinal bleeding that started today. He's had prior episodes. Patient complains of claudication symptoms with bilateral calf pain with ambulation and resolves after rest. He is an active smoker. He has pre-existing history of elevated potassium. He also had multiple prior episodes of GI bleed with rectal bleeding. He has personal history of AVMs identified on upper endoscopy 2 months ago including within the colon and stomach. He reports being transferred to outside facility for similar event where additional upper endoscopy was performed. His capsule endoscopy was done one week ago. Results are not av ailable. He has active GI bleeding with bright red blood per rectum. He is receiving 2 units of blood. PAST MEDICAL HISTORY: See list and reviewed PAST SURGICAL HISTORY: See list and reviewed MEDICATIONS: See list and reviewed ALLERGIES: See list and reviewed SOCIAL HISTORY: See list and reviewed FAMILY HISTORY: See list and reviewed REVIEW OF ORGAN SYSTEMS: CONSTITUTIONAL: No fevers or chills. No recent weight loss. EYES: Denies any trouble with vision. No glasses. HEENT: No difficulties with hearing. No nosebleeds. No difficulty swallowing. RESPIRATORY: Has tobacco abuse disorder. CARDIOVASCULAR: Has hypertensive heart disease. Has hyperlipidemia. History of myocardial infarction. History of myocardial infarction. Reports pain along the legs with ambulation from claudication. GASTROINTESTINAL: Has recurrent gastrointestinal bleeding. Personal history of AVMs. GENITOURINARY: Has chronic renal insufficiency due to hypertensive heart disease NEUROLOGICAL: Denies any numbness or tingling along the distal extremities. No seizure disorders or headaches. MUSCULOSKELETAL: Has back pain, stiffness or joint arthritis. SKIN: No current skin cancer. No rash. PSYCHIATRIC: Denies current depression or suicidal thoughts. ENDOCRINE: Denies current thyroid disorders. Has diabetes type 2 HEME/LYMPHATIC: Denies any lumps and bumps around the neck. No recent deep venous thrombosis. ALLERGY/IMMUNOLOGY: No immunoglobulin therapy. No immune deficiencies. BREAST: Denies current breast lumps, pain or nipple discharge. PHYSICAL EXAM: VITALS: Reviewed CONSTITUTIONAL: Well developed and in no acute distress. EYES: Conjuctivae without sclera icterus. Extraocular movements grossly intact. HEAD, EARS, NOSE, THROAT: Moist buccal mucosa. Head is atraumatic, normocephalic. Hears conversational speech. No nasal drainage. NECK: Supple. No JV distention. No thyroidomegaly. RESPIRATORY: Non-labored respirations and equal bilateral excursions. CARDIOVASCULAR: Palpable 2+ radial pulses. ABDOMEN: Nontender. LYMPH: No neck lymphadenopathy. MUSCULOSKELETAL: No clubbing cyanosis or edema SKIN: Warm and well perfused with good skin turgor. NEUROLOGIC: Cranial nerves II through XII grossly intact. No focal or lateralizing signs. PSYCH: Appropriate affect. Alert and oriented to person, place and time. Displays appropriate insight. CLINCAL LABS: Reviewed. Hemoglobin admission 6.3, prior hemoglobin 7.3, with anemia 12/04/2021. Potassium elevated at 6.1, hyperkalemia. EKG: Nonspecific T-wave abnormality RECORDS: EGD and colonoscopy 10/28/2021 demonstrates AVMs of the stomach and colon ASSESSMENT: 1. Acute blood loss anemia 2. Status post blood transfusion 3. Gastrointestinal AVMs 4. Gastrointestinal bleeding with rectal bleeding 5. Hyperkalemia 6. Peripheral vascular occlusive disease with claudication 7. Tobacco abuse disorder PLAN: 1. Recommend repeat upper and lower endoscopy due to AVMs which can cause s imilar bleeding. 2. We'll proceed with upper endoscopy tomorrow. 3. All questions addressed. 4. Strict tobacco cessation and counseling described over 5 minutes due to claudication. 5. May benefit from vascular surgery consultation for claudication. ADVANCE DIRECTIVE: Thank you for this kind consultation. Past Medical History Past Medical History: Diabetes Mellitus, GERD/Reflux, Hyperlipidemia, Hypertension, Myocardial Infarction ([place]), Renal Disease Last Myocardial Infarction Date:: UNSURE BUT AROUND 08/2021 History of Any Multi-Drug Resistant Organisms: None Reported Past Surgical History: Heart Catheterization Additional Past Surgical History / Comment(s): upper/lower scope. Past Anesthesia/Blood Transfusion Reactions: No Reported Reaction Past Psychological History: No Psychological Hx Reported Smoking Status: Current every day smoker Past Alcohol Use History: None Reported Past Drug Use History: None Reported - Past Family History Mother Family Medical History: No Reported History Medications and Allergies Home Medications Medication Instructions Recorded Confirmed Type Ergocalciferol [Vitamin D2 (1250 1,250 mcg PO GA 10/24/21 12/28/21 History Mcg = 45160 Iu)] Ferrous Sulfate [Iron] 325 mg PO BID 10/24/21 12/28/21 History Pantoprazole [Protonix] 40 mg PO BID 10/24/21 12/28/21 History Rosuvastatin [Crestor] 20 tab PO DAILY 10/24/21 12/28/21 History Torsemide [Demadex] 20 tab PO DAILY 10/24/21 12/28/21 History glipiZIDE 10 mg PO BID 10/24/21 12/28/21 History Saxagliptin HCl [Onglyza] 5 mg PO DAILY 12/28/21 12/28/21 History Sodium Bicarbonate Tab 1,300 mg PO BID 12/28/21 12/28/21 History carvediloL 25 mg PO BID 12/28/21 12/28/21 History lisinopriL [Zestril] 5 mg PO DAILY 12/28/21 12/28/21 History Allergies Allergy/AdvReac Type Severity Reaction Status Date / Time No Known Allergies Allergy Verified 12/28/21 16:52 Surgical - Exam Vital Signs Temp Pulse Resp BP Pulse Ox 97.6 F 67 18 169/58 99 12/28/21 10:50 12/28/21 10:50 12/28/21 10:50 12/28/21 10:50 12/28/21 10:50 Results - Labs 12/28/21 11:44 12/28/21 11:44 Abnormal Lab Results - Last 24 Hours (Table) 12/28/21 12/28/21 12/28/21 Range/Units 11:42 11:44 11:44 RBC 1.93 L (4.30-5.90) m/uL Hgb 6.3 L* (13.0-17.5) gm/dL Hct 20.8 L (39.0-53.0) % MCV 107.5 H D (80.0-100.0) fL MCHC 30.4 L (31.0-37.0) g/dL RDW 15.7 H (11.5-15.5) % Macrocytosis Marked A APTT 20.6 L (22.0-30.0) sec Potassium (3.5-5.1) mmol/L Chloride (98-107) mmol/L Carbon Dioxide (22-30) mmol/L BUN (9-20) mg/dL Creatinine (0.66-1.25) mg/dL Glucose (74-99) mg/dL Calcium (8.4-10.2) mg/dL Total Bilirubin (0.2-1.3) mg/dL AST (17-59) U/L Creatine Kinase (55-170) U/L Total Protein (6.3-8.2) g/dL Crossmatch See Detail 12/28/21 Range/Units 11:44 RBC (4.30-5.90) m/uL Hgb (13.0-17.5) gm/dL Hct (39.0-53.0) % MCV (80.0-100.0) fL MCHC (31.0-37.0) g/dL RDW (11.5-15.5) % Macrocytosis APTT (22.0-30.0) sec Potassium 6.1 H* (3.5-5.1) mmol/L Chloride 109 H (98-107) mmol/L Carbon Dioxide 19 L (22-30) mmol/L BUN 62 H (9-20) mg/dL Creatinine 2.60 H (0.66-1.25) mg/dL Glucose 228 H (74-99) mg/dL Calcium 8.3 L (8.4-10.2) mg/dL Total Bilirubin <0.1 L (0.2-1.3) mg/dL AST 15 L (17-59) U/L Creatine Kinase 46 L (55-170) U/L Total Protein 6.1 L (6.3-8.2) g/dL Crossmatch Diabetes panel 12/28/21 Range/Units 11:44 Sodium 137 (137-145) mmol/L Potassium 6.1 H* (3.5-5.1) mmol/L Chloride 109 H (98-107) mmol/L Carbon Dioxide 19 L (22-30) mmol/L BUN 62 H (9-20) mg/dL Creatinine 2.60 H (0.66-1.25) mg/dL Glucose 228 H (74-99) mg/dL Calcium 8.3 L (8.4-10.2) mg/dL AST 15 L (17-59) U/L ALT 13 (4-49) U/L Alkaline Phosphatase 56 (38-126) U/L Total Protein 6.1 L (6.3-8.2) g/dL Albumin 3.8 (3.5-5.0) g/dL Calcium panel 12/28/21 Range/Units 11:44 Calcium 8.3 L (8.4-10.2) mg/dL Albumin 3.8 (3.5-5.0) g/dL Pituitary panel 12/28/21 Range/Units 11:44 Sodium 137 (137-145) mmol/L Potassium 6.1 H* (3.5-5.1) mmol/L Chloride 109 H (98-107) mmol/L Carbon Dioxide 19 L (22-30) mmol/L BUN 62 H (9-20) mg/dL Creatinine 2.60 H (0.66-1.25) mg/dL Glucose 228 H (74-99) mg/dL Calcium 8.3 L (8.4-10.2) mg/dL Adrenal panel 12/28/21 Range/Units 11:44 Sodium 137 (137-145) mmol/L Potassium 6.1 H* (3.5-5.1) mmol/L Chloride 109 H (98-107) mmol/L Carbon Dioxide 19 L (22-30) mmol/L BUN 62 H (9-20) mg/dL Creatinine 2.60 H (0.66-1.25) mg/dL Glucose 228 H (74-99) mg/dL Calcium 8.3 L (8.4-10.2) mg/dL Total Bilirubin <0.1 L (0.2-1.3) mg/dL AST 15 L (17-59) U/L ALT 13 (4-49) U/L Alkaline Phosphatase 56 (38-126) U/L Total Protein 6.1 L (6.3-8.2) g/dL Albumin 3.8 (3.5-5.0) g/dL
[2021-12-28] MEDS ORDERED: NALOXONE 0.4 MG/ML 1 ML VIAL IV PRN (16:07)
[2021-12-28] MEDS ORDERED: DEXTROSE 50% SYRINGE 50 ML IVP PRN ×2 (16:11)
[2021-12-28 18:02] LABS: Glucose,Whole Blood 84 mg/dL (70-110)
[2021-12-28] MEDS: SODIUM BICARBONATE TAB 650 MG TAB PO SCH (20:18)
[2021-12-28] MEDS: hydrALAZINE HCL 20 MG/ML 1 ML VIAL IVP PRN (20:18)
[2021-12-28] MEDS: carvediloL 12.5 MG TAB PO SCH (20:18)
[2021-12-28] MEDS: FERROUS SULFATE 325 MG TAB PO SCH (20:20)
[2021-12-28 20:53] LABS: Glucose,Whole Blood 97 mg/dL (70-110)
[2021-12-28] MEDS: SODIUM CHLORIDE 0.9% 1,000 ML IV SCH (22:34)
[2021-12-29 02:20] LABS: Anisocytosis Slight; Basophils % (A) 1 %; Eosinophils # (A) 0.1 k/uL (0-0.7); Eosinophils % (A) 2 %; Hypochromasia Slight; Lymphocytes % (A) 17 %; MCH 33.3 pg (25.0-35.0); MCHC 33.1 g/dL (31.0-37.0); Macrocytosis Moderate; Mean Platelet Volume 7.3; Monocytes # (A) 0.4 k/uL (0-1.0); Monocytes % (A) 8 %; Neutrophils # (A) 3.9 k/uL (1.3-7.7); Neutrophils % (A) 70 %; Platelet Count 264 k/uL (150-450); RBC 2.68 m/uL (4.30-5.90); RDW 17.7 % (11.5-15.5); WBC 5.6 k/uL (3.8-10.6)
[2021-12-29 02:28] LABS: HGB 8.9 gm/dL (13.0-17.5); MCV 100.7 fL (80.0-100.0)
[2021-12-29 02:35] LABS: Albumin 3.3 g/dL (3.5-5.0); Calcium 8.5 mg/dL (8.4-10.2); Potassium 5.2 mmol/L (3.5-5.1); Total Bilirubin 0.4 mg/dL (0.2-1.3); Total Protein 5.4 g/dL (6.3-8.2)
[2021-12-29 02:45] LABS: INR 0.9 (<1.2); Prothrombin Time 10.4 sec (9.0-12.0)
[2021-12-29 06:18] LABS: Glucose,Whole Blood 116 mg/dL (70-110)
[2021-12-29] MEDS: SODIUM CHLORIDE 0.9% 1,000 ML IV SCH ×2 (06:22→11:10)
[2021-12-29] MEDS: FERROUS SULFATE 325 MG TAB PO SCH ×2 (06:39→16:42)
[2021-12-29 07:04] LABS: Anisocytosis Slight; Basophils # (A) 0.1 k/uL (0-0.2); Basophils % (A) 1 %; Eosinophils # (A) 0.1 k/uL (0-0.7); Eosinophils % (A) 2 %; HCT 27.7 % (39.0-53.0); HGB 8.9 gm/dL (13.0-17.5); Hypochromasia Moderate; Lymphocytes # (A) 0.8 k/uL (1.0-4.8); Lymphocytes % (A) 15 %; MCH 33.3 pg (25.0-35.0); MCHC 32.3 g/dL (31.0-37.0); MCV 103.3 fL (80.0-100.0); Macrocytosis Moderate; Mean Platelet Volume 7.3; Monocytes # (A) 0.4 k/uL (0-1.0); Monocytes % (A) 8 %; Neutrophils # (A) 3.4 k/uL (1.3-7.7); Neutrophils % (A) 70 %; Platelet Count 267 k/uL (150-450); RBC 2.68 m/uL (4.30-5.90); RDW 18.6 % (11.5-15.5); WBC 4.9 k/uL (3.8-10.6)
[2021-12-29] MEDS ORDERED: glipiZIDE 5 MG TAB PO SCH (07:30)
[2021-12-29] MEDS ORDERED: DEXTROSE 50% SYRINGE 50 ML IVP PRN ×2 (07:49)
[2021-12-29 08:41] VITALS: RESP 18; TEMP 98.4
[2021-12-29] MEDS: hydrALAZINE HCL 20 MG/ML 1 ML VIAL IVP PRN (08:44)
--- NOTE | 2021-12-29 08:59 | P.GSHP ---
History of Present Illness H&P Date: 12/28/21 REASON FOR CONSULTATION: GI bleed HISTORY OF PRESENT ILLNESS: The patient is a 76 year old male who presents with gastrointestinal bleeding that started today. He's had prior episodes. Patient complains of claudication symptoms with bilateral calf pain with ambulation and resolves after rest. He is an active smoker. He has pre-existing history of elevated potassium. He also had multiple prior episodes of GI bleed with rectal bleeding. He has personal history of AVMs identified on upper endoscopy 2 months ago including within the colon and stomach. He reports being transferred to outside facility for similar event where additional upper endoscopy was performed. His capsule endoscopy was done one week ago. Results are not available. He has active GI bleeding with bright red blood per rectum. He is receiving 2 units of blood. PAST MEDICAL HISTORY: See list and reviewed PAST SURGICAL HISTORY: See list and reviewed MEDICATIONS: See list and reviewed ALLERGIES: See list and reviewed SOCIAL HISTORY: See list and reviewed FAMILY HISTORY: See list and reviewed REVIEW OF ORGAN SYSTEMS: CONSTITUTIONAL: No fevers or chills. No recent weight loss. EYES: Denies any trouble with vision. No glasses. HEENT: No difficulties with hearing. No nosebleeds. No difficulty swallowing. RESPIRATORY: Has tobacco abuse disorder. CARDIOVASCULAR: Has hypertensive heart disease. Has hyperlipidemia. History of myocardial infarction. History of myocardial infarction. Reports pain along the legs with ambulation from claudication. GASTROINTESTINAL: Has recurrent gastrointestinal bleeding. Personal history of AVMs. GENITOURINARY: Has chronic renal insufficiency due to hypertensive heart disease NEUROLOGICAL: Denies any numbness or tingling along the distal extremities. No seizure disorders or headaches. MUSCULOSKELETAL: Has back pain, stiffness or joint arthritis. SKIN: No current skin cancer. No rash. PSYCHIATRIC: Denies current depression or suicidal thoughts. ENDOCRINE: Denies current thyroid disorders. Has diabetes type 2 HEME/LYMPHATIC: Denies any lumps and bumps around the neck. No recent deep venous thrombosis. ALLERGY/IMMUNOLOGY: No immunoglobulin therapy. No immune deficiencies. BREAST: Denies current breast lumps, pain or nipple discharge. PHYSICAL EXAM: VITALS: Reviewed CONSTITUTIONAL: Well developed and in no acute distress. EYES: Conjuctivae without sclera icterus. Extraocular movements grossly intact. HEAD, EARS, NOSE, THROAT: Moist buccal mucosa. Head is atraumatic, normocephalic. Hears conversational speech. No nasal drainage. NECK: Supple. No JV distention. No thyroidomegaly. RESPIRATORY: Non-labored respirations and equal bilateral excursions. CARDIOVASCULAR: Palpable 2+ radial pulses. ABDOMEN: Nontender. LYMPH: No neck lymphadenopathy. MUSCULOSKELETAL: No clubbing cyanosis or edema SKIN: Warm and well perfused with good skin turgor. NEUROLOGIC: Cranial nerves II through XII grossly intact. No focal or lateralizing signs. PSYCH: Appropriate affect. Alert and oriented to person, place and time. Dis plays appropriate insight. CLINCAL LABS: Reviewed. Hemoglobin admission 6.3, prior hemoglobin 7.3, with anemia 12/04/2021. Potassium elevated at 6.1, hyperkalemia. EKG: Nonspecific T-wave abnormality RECORDS: EGD and colonoscopy 10/28/2021 demonstrates AVMs of the stomach and colon ASSESSMENT: 1. Acute blood loss anemia 2. Status post blood transfusion 3. Gastrointestinal AVMs 4. Gastrointestinal bleeding with rectal bleeding 5. Hyperkalemia 6. Peripheral vascular occlusive disease with claudication 7. Tobacco abuse disorder PLAN: 1. Recommend repeat upper and lower endoscopy due to AVMs which can cause similar bleeding. 2. We'll proceed with upper endoscopy tomorrow. 3. All questions addressed. 4. Strict tobacco cessation and counseling described over 5 minutes due to claudication. 5. May benefit from vascular surgery consultation for claudication. ADVANCE DIRECTIVE: Thank you for this kind consultation. Past Medical History Past Medical History: Diabetes Mellitus, GERD/Reflux, Hyperlipidemia, Hy pertension, Myocardial Infarction ([place]), Renal Disease Last Myocardial Infarction Date:: UNSURE BUT AROUND 08/2021 History of Any Multi-Drug Resistant Organisms: None Reported Past Surgical History: Heart Catheterization Additional Past Surgical History / Comment(s): upper/lower scope. Past Anesthesia/Blood Transfusion Reactions: No Reported Reaction Past Psychological History: No Psychological Hx Reported Smoking Status: Current every day smoker Past Alcohol Use History: None Reported Past Drug Use History: None Reported - Past Family History Mother Family Medical History: No Reported History Medications and Allergies Home Medications Medication Instructions Recorded Confirmed Type Ergocalciferol [Vitamin D2 (1250 1,250 mcg PO GA 10/24/21 12/28/21 History Mcg = 12571 Iu)] Ferrous Sulfate [Iron] 325 mg PO BID 10/24/21 12/28/21 History Pantoprazole [Protonix] 40 mg PO BID 10/24/21 12/28/21 History Rosuvastatin [Crestor] 20 tab PO DAILY 10/24/21 12/28/21 History Torsemide [Demadex] 20 tab PO DAILY 10/24/21 12/28/21 History glipiZIDE 10 mg PO BID 10/24/21 12/28/21 History Saxagliptin HCl [Onglyza] 5 mg PO DAILY 12/28/21 12/28/21 History Sodium Bicarbonate Tab 1,300 mg PO BID 12/28/21 12/28/21 History carvediloL 25 mg PO BID 12/28/21 12/28/21 History lisinopriL [Zestril] 5 mg PO DAILY 12/28/21 12/28/21 History Allergies Allergy/AdvReac Type Severity Reaction Status Date / Time No Known Allergies Allergy Verified 12/28/21 16:52 Surgical - Exam Vital Signs Temp Pulse Resp BP Pulse Ox 97.6 F 67 18 169/58 99 12/28/21 10:50 12/28/21 10:50 12/28/21 10:50 12/28/21 10:50 12/28/21 10:50 Results - Labs 12/29/21 06:45 12/29/21 06:45 Abnormal Lab Results - Last 24 Hours (Table) 12/28/21 12/28/21 12/28/21 Range/Units 11:42 11:44 11:44 RBC 1.93 L (4.30-5.90) m/uL Hgb 6.3 L* (13.0-17.5) gm/dL Hct 20.8 L (39.0-53.0) % MCV 107.5 H D (80.0-100.0) fL MCHC 30.4 L (31.0-37.0) g/dL RDW 15.7 H (11.5-15.5) % Lymphocytes # (1.0-4.8) k/uL Macrocytosis Marked A APTT 20.6 L (22.0-30.0) sec Potassium (3.5-5.1) mmol/L Chloride (98-107) mmol/L Carbon Dioxide (22-30) mmol/L BUN (9-20) mg/dL Creatinine (0.66-1.25) mg/dL Glucose (74-99) mg/dL POC Glucose (mg/dL) (70-110) mg/dL Calcium (8.4-10.2) mg/dL Total Bilirubin (0.2-1.3) mg/dL AST (17-59) U/L Creatine Kinase (55-170) U/L Total Protein (6.3-8.2) g/dL Albumin (3.5-5.0) g/dL Crossmatch See Detail 12/28/21 12/29/21 12/29/21 Range/Units 11:44 01:52 01:52 RBC 2.68 L (4.30-5.90) m/uL Hgb 8.9 L D (13.0-17.5) gm/dL Hct 27.0 L (39.0-53.0) % MCV 100.7 H D (80.0-100.0) fL MCHC (31.0-37.0) g/dL RDW 17.7 H (11.5-15.5) % Lymphocytes # (1.0-4.8) k/uL Macrocytosis APTT (22.0-30.0) sec Potassium 6.1 H* 5.2 H (3.5-5.1) mmol/L Chloride 109 H 112 H (98-107) mmol/L Carbon Dioxide 19 L 18 L (22-30) mmol/L BUN 62 H 55 H (9-20) mg/dL Creatinine 2.60 H 2.38 H (0.66-1.25) mg/dL Glucose 228 H (74-99) mg/dL POC Glucose (mg/dL) (70-110) mg/dL Calcium 8.3 L (8.4-10.2) mg/dL Total Bilirubin <0.1 L (0.2-1.3) mg/dL AST 15 L 16 L (17-59) U/L Creatine Kinase 46 L (55-170) U/L Total Protein 6.1 L 5.4 L (6.3-8.2) g/dL Albumin 3.3 L (3.5-5.0) g/dL Crossmatch 12/29/21 12/29/21 12/29/21 Range/Units 06:17 06:45 06:45 RBC 2.68 L (4.30-5.90) m/uL Hgb 8.9 L (13.0-17.5) gm/dL Hct 27.7 L (39.0-53.0) % MCV 103.3 H (80.0-100.0) fL MCHC (31.0-37.0) g/dL RDW 18.6 H (11.5-15.5) % Lymphocytes # 0.8 L (1.0-4.8) k/uL Macrocytosis APTT (22.0-30.0) sec Potassium (3.5-5.1) mmol/L Chloride 114 H (98-107) mmol/L Carbon Dioxide 18 L (22-30) mmol/L BUN 49 H (9-20) mg/dL Creatinine 2.34 H (0.66-1.25) mg/dL Glucose 104 H (74-99) mg/dL POC Glucose (mg/dL) 116 H (70-110) mg/dL Calcium 8.0 L (8.4-10.2) mg/dL Total Bilirubin (0.2-1.3) mg/dL AST (17-59) U/L Creatine Kinase (55-170) U/L Total Protein (6.3-8.2) g/dL Albumin (3.5-5.0) g/dL Crossmatch Diabetes panel 12/28/21 12/29/21 12/29/21 Range/Units 11:44 01:52 06:45 Sodium 137 139 140 (137-145) mmol/L Potassium 6.1 H* 5.2 H 5.0 (3.5-5.1) mmol/L Chloride 109 H 112 H 114 H (98-107) mmol/L Carbon Dioxide 19 L 18 L 18 L (22-30) mmol/L BUN 62 H 55 H 49 H (9-20) mg/dL Creatinine 2.60 H 2.38 H 2.34 H (0.66-1.25) mg/dL Glucose 228 H 79 104 H (74-99) mg/dL Calcium 8.3 L 8.5 8.0 L (8.4-10.2) mg/dL AST 15 L 16 L (17-59) U/L ALT 13 9 (4-49) U/L Alkaline Phosphatase 56 49 (38-126) U/L Total Protein 6.1 L 5.4 L (6.3-8.2) g/dL Albumin 3.8 3.3 L (3.5-5.0) g/dL Calcium panel 12/28/21 12/29/21 12/29/21 Range/Units 11:44 01:52 06:45 Calcium 8.3 L 8.5 8.0 L (8.4-10.2) mg/dL Albumin 3.8 3.3 L (3.5-5.0) g/dL Pituitary panel 12/28/21 12/29/21 12/29/21 Range/Units 11:44 01:52 06:45 Sodium 137 139 140 (137-145) mmol/L Potassium 6.1 H* 5.2 H 5.0 (3.5-5.1) mmol/L Chloride 109 H 112 H 114 H (98-107) mmol/L Carbon Dioxide 19 L 18 L 18 L (22-30) mmol/L BUN 62 H 55 H 49 H (9-20) mg/dL Creatinine 2.60 H 2.38 H 2.34 H (0.66-1.25) mg/dL Glucose 228 H 79 104 H (74-99) mg/dL Calcium 8.3 L 8.5 8.0 L (8.4-10.2) mg/dL Adrenal panel 12/28/21 12/29/21 12/29/21 Range/Units 11:44 01:52 06:45 Sodium 137 139 140 (137-145) mmol/L Potassium 6.1 H* 5.2 H 5.0 (3.5-5.1) mmol/L Chloride 109 H 112 H 114 H (98-107) mmol/L Carbon Dioxide 19 L 18 L 18 L (22-30) mmol/L BUN 62 H 55 H 49 H (9-20) mg/dL Creatinine 2.60 H 2.38 H 2.34 H (0.66-1.25) mg/dL Glucose 228 H 79 104 H (74-99) mg/dL Calcium 8.3 L 8.5 8.0 L (8.4-10.2) mg/dL Total Bilirubin <0.1 L 0.4 (0.2-1.3) mg/dL AST 15 L 16 L (17-59) U/L ALT 13 9 (4-49) U/L Alkaline Phosphatase 56 49 (38-126) U/L Total Protein 6.1 L 5.4 L (6.3-8.2) g/dL Albumin 3.8 3.3 L (3.5-5.0) g/dL
[2021-12-29] MEDS ORDERED: PANTOPRAZOLE 40 MG/10 ML VIAL IV SCH ×2 (09:00)
[2021-12-29] MEDS ORDERED: LINAGLIPTIN 5 MG TABLET PO SCH (09:00)
[2021-12-29] MEDS ORDERED: lisinopriL 5 MG TAB PO SCH (09:00)
--- NOTE | 2021-12-29 09:02 | P.PN ---
Subjective Progress Note Date: 12/29/21 CHIEF COMPLAINT: GI bleed HISTORY OF PRESENT ILLNESS: The patient is a 76 year old male who presents with gastrointestinal bleeding active. He received 2 units of blood. Patient had history of multiple active AVMs throughout the gastrointestinal tract. PAST MEDICAL HISTORY: See list and reviewed REVIEW OF ORGAN SYSTEMS: RESPIRATORY: Has tobacco abuse disorder. CARDIOVASCULAR: Has hypertensive heart disease. Has hyperlipidemia. History of myocardial infarction. History of myocardial infarction. Reports pain along the legs with ambulation from claudication. GASTROINTESTINAL: Has recurrent gastrointestinal bleeding. Personal history of AVMs. PHYSICAL EXAM: VITALS: Reviewed CONSTITUTIONAL: Well developed and in no acute distress. EYES: Conjuctivae without sclera icterus. Extraocular movements grossly intact. HEAD, EARS, NOSE, THROAT: Moist buccal mucosa. Head is atraumatic, normocephalic. Hears conversational speech. No nasal drainage. RESPIRATORY: Non-labored respirations and equal bilateral excursions. CARDIOVASCULAR: Palpable 2+ radial pulses. ABDOMEN: Nontender. MUSCULOSKELETAL: No clubbing cyanosis or edema SKIN: Warm and well perfused with good skin turgor. NEUROLOGIC: Cranial nerves II through XII grossly intact. No focal or lateralizing signs. PSYCH: Appropriate affect. Alert and oriented to person, place and time. Displays appropriate insight. CLINCAL LABS: Reviewed. ASSESSMENT: 1. Acute blood loss anemia 2. Status post blood transfusion 3. Gastrointestinal AVMs 4. Gastrointestinal bleeding with rectal bleeding 5. Hyperkalemia 6. Peripheral vascular occlusive disease with claudication 7. Tobacco abuse disorder PLAN: 1. Due to acute gastrointestinal bleed which is recurrent, AVMs or risk for developing throughout the GI tract. We'll proceed with upper endoscopy as colonoscopy at this time contraindicated with electrolyte abnormalities. 2. Above discussed with patient and Dr. Meng regarding AVMs and active GI bleeding. Objective - Vital Signs Vital signs: Vital Signs Temp 98.4 F 12/29/21 08:38 Pulse 75 12/29/21 08:38 Resp 18 12/29/21 08:38 BP 169/69 12/29/21 08:38 Pulse Ox 96 12/29/21 08:38 FiO2 Intake & Output 12/28/21 12/29/21 12/29/21 18:59 06:59 18:59 Intake Total 310 310 Output Total 750 1200 500 Balance -440 -890 -500 Weight 65.771 kg Intake: Blood Product 310 310 Rc As-1 Unit 0 310 [id number] Rc As-1 Unit 310 [id number] Output: Urine 750 1200 500 Other: # Voids 1 - Labs CBC & Chem 7: 12/29/21 06:45 12/29/21 06:45 Labs: Abnormal Lab Results - Last 24 Hours (Table) 12/28/21 12/28/21 12/28/21 Range/Units 11:42 11:44 11:44 RBC 1.93 L (4.30-5.90) m/uL Hgb 6.3 L* (13.0-17.5) gm/dL Hct 20.8 L (39.0-53.0) % MCV 107.5 H D (80.0-100.0) fL MCHC 30.4 L (31.0-37.0) g/dL RDW 15.7 H (11.5-15.5) % Lymphocytes # (1.0-4.8) k/uL Macrocytosis Marked A APTT 20.6 L (22.0-30.0) sec Potassium (3.5-5.1) mmol/L Chloride (98-107) mmol/L Carbon Dioxide (22-30) mmol/L BUN (9-20) mg/dL Creatinine (0.66-1.25) mg/dL Glucose (74-99) mg/dL POC Glucose (mg/dL) (70-110) mg/dL Calcium (8.4-10.2) mg/dL Total Bilirubin (0.2-1.3) mg/dL AST (17-59) U/L Creatine Kinase (55-170) U/L Total Protein (6.3-8.2) g/dL Albumin (3.5-5.0) g/dL Crossmatch See Detail 12/28/21 12/29/21 12/29/21 Range/Units 11:44 01:52 01:52 RBC 2.68 L (4.30-5.90) m/uL Hgb 8.9 L D (13.0-17.5) gm/dL Hct 27.0 L (39.0-53.0) % MCV 100.7 H D (80.0-100.0) fL MCHC (31.0-37.0) g/dL RDW 17.7 H (11.5-15.5) % Lymphocytes # (1.0-4.8) k/uL Macrocytosis APTT (22.0-30.0) sec Potassium 6.1 H* 5.2 H (3.5-5.1) mmol/L Chloride 109 H 112 H (98-107) mmol/L Carbon Dioxide 19 L 18 L (22-30) mmol/L BUN 62 H 55 H (9-20) mg/dL Creatinine 2.60 H 2.38 H (0.66-1.25) mg/dL Glucose 228 H (74-99) mg/dL POC Glucose (mg/dL) (70-110) mg/dL Calcium 8.3 L (8.4-10.2) mg/dL Total Bilirubin <0.1 L (0.2-1.3) mg/dL AST 15 L 16 L (17-59) U/L Creatine Kinase 46 L (55-170) U/L Total Protein 6.1 L 5.4 L (6.3-8.2) g/dL Albumin 3.3 L (3.5-5.0) g/dL Crossmatch 12/29/21 12/29/21 12/29/21 Range/Units 06:17 06:45 06:45 RBC 2.68 L (4.30-5.90) m/uL Hgb 8.9 L (13.0-17.5) gm/dL Hct 27.7 L (39.0-53.0) % MCV 103.3 H (80.0-100.0) fL MCHC (31.0-37.0) g/dL RDW 18.6 H (11.5-15.5) % Lymphocytes # 0.8 L (1.0-4.8) k/uL Macrocytosis APTT (22.0-30.0) sec Potassium (3.5-5.1) mmol/L Chloride 114 H (98-107) mmol/L Carbon Dioxide 18 L (22-30) mmol/L BUN 49 H (9-20) mg/dL Creatinine 2.34 H (0.66-1.25) mg/dL Glucose 104 H (74-99) mg/dL POC Glucose (mg/dL) 116 H (70-110) mg/dL Calcium 8.0 L (8.4-10.2) mg/dL Total Bilirubin (0.2-1.3) mg/dL AST (17-59) U/L Creatine Kinase (55-170) U/L Total Protein (6.3-8.2) g/dL Albumin (3.5-5.0) g/dL Crossmatch
[2021-12-29] MEDS: ATORVASTATIN 40 MG TAB PO SCH ×2 (09:15→11:12)
[2021-12-29] MEDS: SODIUM BICARBONATE TAB 650 MG TAB PO SCH (09:15)
--- NOTE | 2021-12-29 09:43 | P.CONS ---
History of Present Illness - Reason for Consult Consult date: 12/29/21 - History of Present Illness HISTORY OF PRESENT ILLNESS This is a 76-year-old male with past medical history of diabetes mellitus type 2, gastroesophageal reflux disease, history of GI bleed with rectal bleeding, anemia of chronic GI bleed secondary to gastric and cecal AVMs, hypertension, hyperlipidemia, history of myocardial infarction February 2021 status post cardiac catheterization done at [facility] showing collateral circulation, chronic kidney disease stage IV follows with Dr. Holley, diabetic retinopathy, peripheral artery disease, active tobacco use. Patient underwent EGD and colonoscopy with Dr. María Almaguer on 10/28. Upper endoscopy revealed two 5 mm nonbleeding gastric AVMs status post cautery. Colonoscopy revealed 5 mm and 2 cm nonbleeding cecal AVMs status post cautery using a gold and argon plasma coagulation. 1 cm hepatic flexure polyp status post polypectomy. On November 21, patient's hemoglobin was 6.4 and he was transfused 1 unit packed RBCs as an outpatient in the ERat that time found on outpatient laboratory studies done by his bowling or skating front desk clerk. Patient subsequently had another EGD done in November at [facility]. Subsequently patient had capsule endoscopy done by Dr. María Almaguer on December 22 and report is pending. Patient states that he stopped iron in order to have his Old endoscopy done and noted that he 2 nights ago he had red bloody stools he always has black stools. Patient came into [facility] emergency center for evaluation. Patient was found to be afebrile, heart rate 71, blood pressure 144/74, pulse ox 98% on room air. EKG is sinus rhythm. WBC 6.6, hemoglobin 6.3, platelet count 337. Sodium 137, potassium 6.1, chloride 109, CO2 19, BUN 62 and creatinine 2.6. Blood sugar 228.. Calcium 8.3. Magnesium 2.0. Total bilirubin less than 0.1. AST 15, ALT 13, alkaline phosphatase 56, ammonia less than 9, CK 46. Troponin negative. Total protein 6.1, albumin 3.8. Lipase 234. Stool for occult blood was positive. Patient was transfused 2 units of packed RBCs and repeat blood work this morning reveals hemoglobin of 8.9. BUN 49, creatinine 2.34, potassium 5.0, CO2 18. Patient was transfused 2 units of packed RBCs, status post 1 dose of oral Kayexalate, regular insulin/dextrose and 1 dose of IV Lasix 40 mg. He has been admitted to the cardiac stepdown unit, seen by general surgeon and scheduled for EGD today REVIEW OF SYSTEMS Constitutional: No fever, no chills, no night sweats. No weight change. No weakness, reports fatigue no lethargy. No daytime sleepiness. EENT: No headache. No blurred vision or double vision, no loss of vision. No loss of Hearing, no ringing in the ears, no dizziness. No nasal drainage or congestion. No epistaxis. No sore throat. Lungs: No shortness of breath, cough, no sputum production. No wheezing. Cardiovascular: No chest pain, no lower extremity edema. No palpitations. No paroxysmal nocturnal dyspnea. No orthopnea. Reports lightheadedness or diz ziness. No syncopal episodes. Abdominal: No abdominal pain. No nausea, vomiting. No diarrhea. No constipation. Reports bloody or tarry stools. Reports loss of appetite. Genitourinary: No dysuria, increased frequency, urgency. No urinary retention. Musculoskeletal: No myalgias. No muscle weakness, no gait dysfunction, no frequent falls. No back pain. No neck pain. Integumentary: No wounds, no lesions. No rash or pruritus. No unusual bruising. No change in hair or nails. Neurologic: No aphasia. No facial droop. No change in mentation. No head injury. No headache. No paralysis. No paresthesia. Psychiatric: No depression. No anxiety. No mood swings. Endocrine: No abnormal blood sugars. No weight change. No excessive sweating or thirst. No cold intolerance. MEDICAL HISTORY Diabetes mellitus type 2 Diabetic retinopathy Gastroesophageal reflux disease Anemia of chronic GI bleed secondary to gastric and cecal AVMs History of gastric and cecal AVMs Hypertension Hyperlipidemia History of myocardial infarction February 2021 Chronic kidney disease stage IV SURGICAL HISTORY Cardiac catheterization February 2021 EGD, multiple with cauterization, gold and argon plasma coagulation Colonoscopy SOCIAL HISTORY Patient is a smoker of one pack per day since age 20. He has rare alcohol use, no marijuana or illicit drug use. Patient lives at home with his . FAMILY HISTORY Mother at age 76 of unknown cause. Patient does not know her medical history. Father approximate 76 from some type of cancer he does not recall the type but also had history of prostate cancer. Patient has 2 brothers and one sister with no major medical problems that he is aware of. Patient has one son and one daughter with no major medical problems.. PHYSICAL EXAMINATION Gen: This is a 76-year-old male. He is resting in bed and appears to be comfortable and in no acute distress. HEENT: Head is atraumatic, normocephalic. Pupils equal, round. Sclerae is anicteric. NECK: Supple. No JVD. No lymphadenopathy. No thyromegaly. LUNGS: Clear to auscultation. No wheezes or rhonchi. No intercostal retractions. HEART: Regular rate and rhythm. No murmur. ABDOMEN: Soft. Bowel sounds are present. No masses. No tenderness. EXTREMITIES: No pedal edema. No calf tenderness. NEUROLOGICAL: Patient is awake, alert and oriented x3. Cranial nerves 2 through 12 are grossly intact. ASSESSMENT AND PLAN 1. Acute GI bleed most likely due to gastric AVMs. Patient is scheduled for EGD today, continue Protonix 40 mg twice daily IV. We will obtain report on capsule endoscopy. 2. Acute on chronic blood loss anemia secondary to gastric and cecum AVMs. Patient is status post 2 units of packed RBCs. Continue to monitor hemoglobin every 8 hours for 24 hours and transfuse as indicated, continue ferrous sulfate 325 mg twice daily. 3. Acute kidney injury. Avoid nephrotoxic agents, consult with nephrology, IV fluids 0.9 normal saline at 75 mL per hour, lisinopril was discontinued. 4. Hyperkalemia secondary to acute kidney injury. Patient is status post Kayexalate and regular insulin/dextrose. Nephrology consult. 5. Metabolic acidosis secondary to kidney injury. Continue sodium bicarbonate 1300 mg twice daily, 0.9 normal saline at 75 mL per hour. 6. Hypertension. Lisinopril was discontinued. Continue patient on Coreg 25 mg twice daily, hydralazine IV as needed. Hold Demadex 20 mg daily. 7. Diabetes mellitus type 2. Patient be started on NovoLog scale before meals and at bedtime,. Hold glipizide 10 mg twice daily, continue patient on Tradjenta 5 mg daily. 8. Hyperlipidemia. Continue atorvastatin 40 mg daily. 9. Peripheral artery disease. Patient had arterial ultrasound 12/11 which revealed diminished TBI values bilaterally with loss of the spasticity is abnormal at least moderate peripheral artery disease in the bilateral feet. 10. GI prophylaxis. Protonix. 11. DVT prophylaxis. SCDs and ESTHELA hose. Patient will be admitted to the hospital for a minimum of 2 night stay. DISCHARGE PLAN Return home. Impression and plan of care have been directed as dictated by the signing physi cian. Krissy Carter nurse practitioner acting Past Medical History Past Medical History: Diabetes Mellitus, GERD/Reflux, Hyperlipidemia, Hypertensi on, Myocardial Infarction ([place]), Renal Disease Last Myocardial Infarction Date:: UNSURE BUT AROUND 08/2021 History of Any Multi-Drug Resistant Organisms: None Reported Past Surgical History: Heart Catheterization Additional Past Surgical History / Comment(s): upper/lower scope. Past Anesthesia/Blood Transfusion Reactions: No Reported Reaction Past Psychological History: No Psychological Hx Reported Smoking Status: Current every day smoker Past Alcohol Use History: None Reported Past Drug Use History: None Reported - Past Family History Mother Family Medical History: No Reported History Medications and Allergies Home Medications Medication Instructions Recorded Confirmed Type Ergocalciferol [Vitamin D2 (1250 1,250 mcg PO GA 10/24/21 12/28/21 History Mcg = 88283 Iu)] Ferrous Sulfate [Iron] 325 mg PO BID 10/24/21 12/28/21 History Pantoprazole [Protonix] 40 mg PO BID 10/24/21 12/28/21 History Rosuvastatin [Crestor] 20 tab PO DAILY 10/24/21 12/28/21 History Torsemide [Demadex] 20 tab PO DAILY 10/24/21 12/28/21 History glipiZIDE 10 mg PO BID 10/24/21 12/28/21 History Saxagliptin HCl [Onglyza] 5 mg PO DAILY 12/28/21 12/28/21 History Sodium Bicarbonate Tab 1,300 mg PO BID 12/28/21 12/28/21 History carvediloL 25 mg PO BID 12/28/21 12/28/21 History lisinopriL [Zestril] 5 mg PO DAILY 12/28/21 12/28/21 History Allergies Allergy/AdvReac Type Severity Reaction Status Date / Time No Known Allergies Allergy Verified 12/28/21 16:52 Physical Exam Vitals: Vital Signs Temp Pulse Pulse Resp BP BP Pulse Ox 12/29/21 03:55 98.5 F 75 15 140/52 96 12/29/21 00:40 98.7 F 97 16 140/57 95 12/28/21 22:20 97.9 F 73 16 143/64 97 12/28/21 19:06 98.2 F 74 18 174/67 99 12/28/21 18:39 97.9 F 70 18 196/74 98 12/28/21 18:36 97.9 F 69 18 196/74 12/28/21 18:26 98.0 F 71 18 196/72 97 12/28/21 18:15 97.8 F 73 18 192/83 97 12/28/21 16:52 82 16 182/70 98 12/28/21 15:57 73 12/28/21 15:46 97 F L 85 16 178/70 12/28/21 15:40 66 12/28/21 15:16 97 F L 72 16 152/71 12/28/21 15:06 97 F L 71 18 144/74 12/28/21 12:52 82 16 176/82 98 12/28/21 10:50 97.6 F 67 18 169/58 99 Intake and Output 12/28/21 12/29/21 12/29/21 22:59 06:59 14:59 Intake Total 620 Output Total 1350 600 Balance -730 -600 Intake: Blood Product 620 Rc As-1 Unit 310 [id number] Rc As-1 Unit 310 [id number] Output: Urine 1350 600 Other: # Voids 1 Weight 65.771 kg Results CBC & Chem 7: 12/29/21 06:45 12/29/21 06:45 Labs: Abnormal Lab Results - Last 24 Hours (Table) 12/28/21 12/28/21 12/28/21 Range/Units 11:42 11:44 11:44 RBC 1.93 L (4.30-5.90) m/uL Hgb 6.3 L* (13.0-17.5) gm/dL Hct 20.8 L (39.0-53.0) % MCV 107.5 H D (80.0-100.0) fL MCHC 30.4 L (31.0-37.0) g/dL RDW 15.7 H (11.5-15.5) % Lymphocytes # (1.0-4.8) k/uL Macrocytosis Marked A APTT 20.6 L (22.0-30.0) sec Potassium (3.5-5.1) mmol/L Chloride (98-107) mmol/L Carbon Dioxide (22-30) mmol/L BUN (9-20) mg/dL Creatinine (0.66-1.25) mg/dL Glucose (74-99) mg/dL POC Glucose (mg/dL) (70-110) mg/dL Calcium (8.4-10.2) mg/dL Total Bilirubin (0.2-1.3) mg/dL AST (17-59) U/L Creatine Kinase (55-170) U/L Total Protein (6.3-8.2) g/dL Albumin (3.5-5.0) g/dL Crossmatch See Detail 12/28/21 12/29/21 12/29/21 Range/Units 11:44 01:52 01:52 RBC 2.68 L (4.30-5.90) m/uL Hgb 8.9 L D (13.0-17.5) gm/dL Hct 27.0 L (39.0-53.0) % MCV 100.7 H D (80.0-100.0) fL MCHC (31.0-37.0) g/dL RDW 17.7 H (11.5-15.5) % Lymphocytes # (1.0-4.8) k/uL Macrocytosis APTT (22.0-30.0) sec Potassium 6.1 H* 5.2 H (3.5-5.1) mmol/L Chloride 109 H 112 H (98-107) mmol/L Carbon Dioxide 19 L 18 L (22-30) mmol/L BUN 62 H 55 H (9-20) mg/dL Creatinine 2.60 H 2.38 H (0.66-1.25) mg/dL Glucose 228 H (74-99) mg/dL POC Glucose (mg/dL) (70-110) mg/dL Calcium 8.3 L (8.4-10.2) mg/dL Total Bilirubin <0.1 L (0.2-1.3) mg/dL AST 15 L 16 L (17-59) U/L Creatine Kinase 46 L (55-170) U/L Total Protein 6.1 L 5.4 L (6.3-8.2) g/dL Albumin 3.3 L (3.5-5.0) g/dL Crossmatch 12/29/21 12/29/21 Range/Units 06:17 06:45 RBC 2.68 L (4.30-5.90) m/uL Hgb 8.9 L (13.0-17.5) gm/dL Hct 27.7 L (39.0-53.0) % MCV 103.3 H (80.0-100.0) fL MCHC (31.0-37.0) g/dL RDW 18.6 H (11.5-15.5) % Lymphocytes # 0.8 L (1.0-4.8) k/uL Macrocytosis APTT (22.0-30.0) sec Potassium (3.5-5.1) mmol/L Chloride (98-107) mmol/L Carbon Dioxide (22-30) mmol/L BUN (9-20) mg/dL Creatinine (0.66-1.25) mg/dL Glucose (74-99) mg/dL POC Glucose (mg/dL) 116 H (70-110) mg/dL Calcium (8.4-10.2) mg/dL Total Bilirubin (0.2-1.3) mg/dL AST (17-59) U/L Creatine Kinase (55-170) U/L Total Protein (6.3-8.2) g/dL Albumin (3.5-5.0) g/dL Crossmatch
[2021-12-29] MEDS: carvediloL 12.5 MG TAB PO SCH (10:52)
--- NOTE | 2021-12-29 12:07 | P.NPCON ---
History of Present Illness - Reason for Consult chronic renal failure - History of Present Illness Patient is a 76-year-old male with history of chronic kidney disease, NKF stage IV with baseline creatinine about 2.3-2.4 mg/dL. Patient also has a history of chronic anemia with multiple episodes of GI bleed with previously documented AVMs. Patient was admitted to the hospital with complaints of bright red blood per rectum. He is currently scheduled for EGD. Patient has had EGDs and colonoscopies previously including capsule endoscopy results of which is currently pending. AVMs were identified on one of the occasions. Serum creatinine 2.3 on this admission. Potassium was elevated at 6.1, currently improved. Patient is maintained on much at home for chronic hyperkalemia associated with CK D. Review of Systems As per HPI, other systems negative Past Medical History Past Medical History: Diabetes Mellitus, GERD/Reflux, Hyperlipidemia, Hypertension, Myocardial Infarction ([place]), Renal Disease Last Myocardial Infarction Date:: UNSURE BUT AROUND 08/2021 History of Any Multi-Drug Resistant Organisms: None Reported Past Surgical History: Heart Catheterization Additional Past Surgical History / Comment(s): upper/lower scope. Past Anesthesia/Blood Transfusion Reactions: No Reported Reaction Past Psychological History: No Psychological Hx Reported Smoking Status: Current every day smoker Past Alcohol Use History: None Reported Past Drug Use History: None Reported - Past Family History Mother Family Medical History: No Reported History Medications and Allergies Home Medications Medication Instructions Recorded Confirmed Type Ergocalciferol [Vitamin D2 (1250 1,250 mcg PO GA 10/24/21 12/28/21 History Mcg = 87510 Iu)] Ferrous Sulfate [Iron] 325 mg PO BID 10/24/21 12/28/21 History Pantoprazole [Protonix] 40 mg PO BID 10/24/21 12/28/21 History Rosuvastatin [Crestor] 20 tab PO DAILY 10/24/21 12/28/21 History Torsemide [Demadex] 20 tab PO DAILY 10/24/21 12/28/21 History glipiZIDE 10 mg PO BID 10/24/21 12/28/21 History Saxagliptin HCl [Onglyza] 5 mg PO DAILY 12/28/21 12/28/21 History Sodium Bicarbonate Tab 1,300 mg PO BID 12/28/21 12/28/21 History carvediloL 25 mg PO BID 12/28/21 12/28/21 History lisinopriL [Zestril] 5 mg PO DAILY 12/28/21 12/28/21 History Allergies Allergy/AdvReac Type Severity Reaction Status Date / Time No Known Allergies Allergy Verified 12/28/21 16:52 Physical Exam Vitals: Vital Signs Temp Pulse Pulse Resp BP BP Pulse Ox 12/29/21 10:47 75 18 12/29/21 08:38 98.4 F 75 18 169/69 96 12/29/21 03:55 98.5 F 75 15 140/52 96 12/29/21 00:40 98.7 F 97 16 140/57 95 12/28/21 22:20 97.9 F 73 16 143/64 97 12/28/21 19:06 98.2 F 74 18 174/67 99 12/28/21 18:39 97.9 F 70 18 196/74 98 12/28/21 18:36 97.9 F 69 18 196/74 12/28/21 18:26 98.0 F 71 18 196/72 97 12/28/21 18:15 97.8 F 73 18 192/83 97 12/28/21 16:52 82 16 182/70 98 12/28/21 15:57 73 12/28/21 15:46 97 F L 85 16 178/70 12/28/21 15:40 66 12/28/21 15:16 97 F L 72 16 152/71 12/28/21 15:06 97 F L 71 18 144/74 12/28/21 12:52 82 16 176/82 98 Intake and Output 12/28/21 12/29/21 12/29/21 22:59 06:59 14:59 Intake Total 620 Output Total 1350 600 500 Balance -730 -600 -500 Intake: Blood Product 620 Rc As-1 Unit 310 [id number] Rc As-1 Unit 310 [id number] Output: Urine 1350 600 500 Other: # Voids 1 Weight 65.771 kg Awake, comfortable, not in any acute distress Alert oriented 3 Examination of the heart S1 and S2 Examination lungs bilateral breath sounds are heard Abdomen is soft nontender Examination of the lower extremities shows no evidence of edema [employer] exam is grossly intact Results - Lab Results Most recent lab results Calcium 8.0 mg/dL (8.4-10.2) L 12/29/21 06:45 Magnesium 2.0 mg/dL (1.6-2.3) 12/28/21 11:44 12/29/21 06:45 12/29/21 06:45 Assessment and Plan Assessment: 1. Chronic kidney disease NKF stage IV with baseline creatinine about 2.3 mg/dL. Etiology nephrosclerosis and diabetic kidney disease. Renal function is at baseline 2. Hyperkalemia associated with CK D, metabolic acidosis and underlying GI bleed, currently improved. Patient is maintained on at home. 3. metabolic acidosis associated with ck d 4. hypertension with ck d stage iv 5. GI bleed with previous history of avms Plan: Continue saline Continue with sodium bicarb tablets, increase to 3 times a day if not improved Add Aranesp Check iron profile
[2021-12-29] MEDS ORDERED: LACTATED RINGERS 1,000 ML IV SCH (12:15)
[2021-12-29 12:16] LABS: Glucose,Whole Blood 138 mg/dL (70-110)
[2021-12-29] MEDS: INSULIN ASPART (NovoLOG) 100 UNIT/ML VIAL SQ SCH ×2 (12:32→16:42)
[2021-12-29] MEDS ORDERED: PROPOFOL 10 MG/ML 20 ML VIAL IV ONE (12:37)
[2021-12-29] MEDS ORDERED: LIDOCAINE 2% INJ 20 MG/ML (2 ML VIAL) ONE (12:37)
[2021-12-29] MEDS ORDERED: IV FLUID CONTINUATION 1,000 ML IV ONE ×2 (12:40)
--- NOTE | 2021-12-29 12:51 | P.PCN ---
Date of Procedure: 12/29/21 Description of Procedure: Ablation of AVMs 2 stomach, proximal to the angle of His incisura and distal incisura, 3 mm and 1 mm respectively. First portion duodenal AVM 3 mL ablated
[2021-12-29 16:01] LABS: Anisocytosis Slight; HCT 28.7 % (39.0-53.0); HGB 9.3 gm/dL (13.0-17.5); Hypochromasia Slight; MCH 32.6 pg (25.0-35.0); MCHC 32.6 g/dL (31.0-37.0); MCV 100.1 fL (80.0-100.0); Macrocytosis Slight; Mean Platelet Volume 7.9; Platelet Count 272 k/uL (150-450); Poikilocytosis Slight; RBC 2.87 m/uL (4.30-5.90); RDW 18.1 % (11.5-15.5)
[2021-12-29 16:42] VITALS: BP 159/66; PULSE 78
[2021-12-29 16:49] LABS: Glucose,Whole Blood 325 mg/dL (70-110)
--- NOTE | 2021-12-29 17:56 | P.DS ---
Providers Date of admission: 12/28/21 16:21 Expected date of discharge: 12/29/21 Attending physician: Claribel Moran Consults: 12/28/21 16:07 Consult Physician Routine Consulting Provider: Kirby Meng Consult Reason/Comments: Admission for GI bleed, hyperkalemia Do you want consulting provider notified?: Already Contacted 12/28/21 22:25 Consult Physician Routine Consulting Provider: Seda Holley Consult Reason/Comments: Chronic renal failure Do you want consulting provider notified?: Yes, Notify in am Primary care physician: Kirby Meng Hospital Course: Hemoglobin improved after 2 units. Potassium resolved. Medications adjusted with discontinuation of lisinopril. Upper endoscopy report reveals new arteriovenous malformations with ablation performed. Patient had bowel movement without blood. Overall, moderate clinical improvement since admission. Otherwise stable for discharge. Immediate follow-up with primary care provider in the interim. Follow-up as outpatient in 2 weeks. Patient Condition at Discharge: Fair Plan - Discharge Summary Discharge Rx Participant: Yes New Discharge Prescriptions: Continue Ergocalciferol [Vitamin D2 (1250 Mcg = 95874 Iu)] 1,250 mcg PO GA Ferrous Sulfate [Iron] 325 mg PO BID Rosuvastatin [Crestor] 20 tab PO DAILY carvediloL 25 mg PO BID Torsemide [Demadex] 20 tab PO DAILY Pantoprazole [Protonix] 40 mg PO BID glipiZIDE 10 mg PO BID Sodium Bicarbonate Tab 1,300 mg PO BID Saxagliptin HCl [Onglyza] 5 mg PO DAILY Discontinued lisinopriL [Zestril] 5 mg PO DAILY Discharge Medication List Ergocalciferol [Vitamin D2 (1250 Mcg = 28516 Iu)] 1,250 mcg PO GA 10/24/21 [History] Ferrous Sulfate [Iron] 325 mg PO BID 10/24/21 [History] Pantoprazole [Protonix] 40 mg PO BID 10/24/21 [History] Rosuvastatin [Crestor] 20 tab PO DAILY 10/24/21 [History] Torsemide [Demadex] 20 tab PO DAILY 10/24/21 [History] glipiZIDE 10 mg PO BID 10/24/21 [History] Saxagliptin HCl [Onglyza] 5 mg PO DAILY 12/28/21 [History] Sodium Bicarbonate Tab 1,300 mg PO BID 12/28/21 [History] carvediloL 25 mg PO BID 12/28/21 [History] Follow up Appointment(s)/Referral(s): Kirby Meng MD [Primary Care Provider] - 1-2 days Claribel Moran MD [STAFF PHYSICIAN] - 01/15/22 Seda Holley MD [STAFF PHYSICIAN] - 1 Week Patient Instructions/Handouts: Arteriovenous Malformation (ED), Gastrointestinal Bleeding (DC), How to Stop Smoking (DC) Activity/Diet/Wound Care/Special Instructions: Strict tobacco cessation described. Increased risk for rebleed especially what tobacco use. Discharge Disposition: HOME SELF-CARE
[2022-01-04] MEDS ORDERED: ERGOCALCIFEROL 1,250 MCG (50,000 IU) CAPSULE PO SCH (09:00)
== END 2021-12-29 18:18 | disposition home or self-care (01) | DRG 378 ==
LOC: EC 10:46 → 3SCARD 16:21
PROVIDERS: ADMIT Surgery Plastic and Reconstructive Surgery; ATTEND Surgery Plastic and Reconstructive Surgery
PROC: 30233N1 Transfusion of Nonautologous Red Blood Cells into Peripheral Vein, Percutaneous Approach (ICD-10-PCS; 2021-12-29)
PROC: 0W3P8ZZ Control Bleeding in Gastrointestinal Tract, Via Natural or Artificial Opening Endoscopic (ICD-10-PCS; principal; 2021-12-29 08:20)
DX: K31.811 Angiodysplasia of stomach and duodenum with bleeding (principal); D62 Acute posthemorrhagic anemia; E87.2 Acidosis; N17.9 Acute kidney failure, unspecified; N18.4 Chronic kidney disease, stage 4 (severe); E11.22 Type 2 diabetes mellitus with diabetic chronic kidney disease; E11.319 Type 2 diabetes mellitus with unspecified diabetic retinopathy without macular edema; E11.51 Type 2 diabetes mellitus with diabetic peripheral angiopathy without gangrene; E78.5 Hyperlipidemia, unspecified; E87.5 Hyperkalemia; F17.210 Nicotine dependence, cigarettes, uncomplicated; Z71.6 Tobacco abuse counseling; I13.10 Hypertensive heart and chronic kidney disease without heart failure, with stage 1 through stage 4 chronic kidney disease, or unspecified chronic kidney disease; I25.2 Old myocardial infarction; Z86.010 Personal history of colon polyps; Z79.84 Long term (current) use of oral hypoglycemic drugs; Z79.899 Other long term (current) drug therapy; Z87.19 Personal history of other diseases of the digestive system
CPT/HCPCS: 36415; 43270; 80048; 80053; 82140; 82272; 82550; 83036; 83690; 83735; 84484; 85025; 85027; 85610; 85730; 86850; 86900; 86901; 86920; 93005; 94640; 96361; 96374; 96375; 99285

== ENCOUNTER 2022-03-20 11:58 | Emergency (ER) | payer MEDICARE, OTHER ==
--- NOTE | 2022-03-20 15:05 | ED ---
General Adult HPI - General Source: patient Mode of arrival: ambulatory Limitations: no limitations <Peewee Sanders - Last Filed: 03/20/22 16:18> <Sandeep Castillo - Last Filed: 03/20/22 19:23> - General Chief complaint: Recheck/Abnormal Lab/Rx Stated complaint: Abnormal Labs, Sent by Doctor Time Seen by Provider: 03/20/22 14:23 - History of Present Illness Initial comments: 77-year-old female with past medical history of diabetes mellitus, GERD, hyperlipidemia, hypertension, CA, renal disease presents to the emergency room for a chief complaint of abnormal labs. Patient states he had his labs drawn at his doctor's office and his potassium was high. He states they were wondering if his blood was low again as well. They presented him to come to the emergency room. Patient denies any abdominal pain or bright red blood in his stool. He takes iron supplements of his stools are always dark. Patient has a history of a GI bleed in the past. He denies any chest pain.Patient has no other complaints at this time including shortness of breath, chest pain, abdominal pain, nausea or vomiting, headache, or visual changes. (Peewee Sanders) - Related Data Home Medications Medication Instructions Recorded Confirmed Ergocalciferol [Vitamin D2 (1250 1,250 mcg PO GA 10/24/21 12/28/21 Mcg = 81471 Iu)] Ferrous Sulfate [Iron] 325 mg PO BID 10/24/21 12/28/21 Pantoprazole [Protonix] 40 mg PO BID 10/24/21 12/28/21 Rosuvastatin [Crestor] 20 tab PO DAILY 10/24/21 12/28/21 Torsemide [Demadex] 20 tab PO DAILY 10/24/21 12/28/21 glipiZIDE 10 mg PO BID 10/24/21 12/28/21 Saxagliptin HCl [Onglyza] 5 mg PO DAILY 12/28/21 12/28/21 Sodium Bicarbonate Tab 1,300 mg PO BID 12/28/21 12/28/21 carvediloL 25 mg PO BID 12/28/21 12/28/21 Allergies Allergy/AdvReac Type Severity Reaction Status Date / Time No Known Allergies Allergy Verified 03/20/22 12:40 Review of Systems ROS Other: All systems not noted in ROS Statement are negative. <Peewee Sanders - Last Filed: 03/20/22 16:18> ROS Other: All systems not noted in ROS Statement are negative. <Sandeep Castillo - Last Filed: 03/20/22 19:23> ROS Statement: Those systems with pertinent positive or pertinent negative responses have been documented in the HPI. Past Medical History Past Medical History: Diabetes Mellitus, GERD/Reflux, Hyperlipidemia, Hypertension, Myocardial Infarction (CA), Renal Disease Last Myocardial Infarction Date:: UNSURE BUT AROUND 08/2021 History of Any Multi-Drug Resistant Organisms: None Reported Past Surgical History: Heart Catheterization Additional Past Surgical History / Comment(s): upper/lower scope. Past Anesthesia/Blood Transfusion Reactions: No Reported Reaction Past Psychological History: No Psychological Hx Reported Smoking Status: Current every day smoker Past Alcohol Use History: Occasional Past Drug Use History: None Reported - Past Family History Mother Family Medical History: No Reported History <TommyPeewee - Last Filed: 03/20/22 16:18> General Exam Limitations: no limitations General appearance: alert, in no apparent distress Head exam: Present: atraumatic Eye exam: Present: normal appearance, PERRL, EOMI. Absent: scleral icterus, conjunctival injection ENT exam: Present: normal exam, mucous membranes moist Neck exam: Present: normal inspection, full ROM. Absent: tenderness Respiratory exam: Present: normal lung sounds bilaterally. Absent: respiratory distress, wheezes Cardiovascular Exam: Present: regular rate, normal rhythm, normal heart sounds GI/Abdominal exam: Present: soft, normal bowel sounds. Absent: distended, tenderness, guarding Neurological exam: Present: alert <Peewee Sanders - Last Filed: 03/20/22 16:18> Course Vital Signs 03/20/22 03/20/22 03/20/22 12:38 15:05 16:00 Temperature 98.7 F Pulse Rate 70 68 65 Respiratory 20 18 18 Rate Blood Pressure 139/58 148/77 151/79 O2 Sat by Pulse 99 99 100 Oximetry 03/20/22 17:59 Temperature 98.0 F Pulse Rate 65 Respiratory 18 Rate Blood Pressure 177/80 O2 Sat by Pulse 99 Oximetry EKG Findings - EKG Comments: EKG Findings:: I interpreted the EKG: sinus bradycardia, vent rate 59, TX int 167, QTc 430 <Peewee Sanders - Last Filed: 03/20/22 16:18> Medical Decision Making <Peewee Sanders - Last Filed: 03/20/22 16:18> - Lab Data Result diagrams: 03/20/22 16:18 03/20/22 16:18 <Sandeep Castillo - Last Filed: 03/20/22 19:23> - Medical Decision Making Difficulty getting labs. Care signed out to Sandeep Castillo at 415. 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 Patient denies any symptoms. States has had episodes of hyperkalemia in the past due to his chronic renal disease. EKG shows sinus rhythm with a ventricular rate of 59. Potassium 5.6, BUN 59 and creatinine 2.61. Hemoglobin is 8.0 hematocrit 24.0. Patient states he is getting injections to increase his hemoglobin every 2 weeks. Patient denies symptoms and states wants to go home. Denies chest pain or shortness of breath. No weakness. Family at bedside. Case discussed with Dr. Jeter. He was given Lasix 20 mg in the emergency room. Directed to follow up with his doctor as scheduled on Wednesday and return to the emergency room with a new concerning symptoms. With shared decision making patient and family requesting to be discharged. Strict parameters were discussed. Vital signs are stable. (Sandeep Castillo) - Lab Data Lab Results 03/20/22 03/20/22 03/20/22 Range/Units 14:42 16:18 16:18 WBC 5.2 (3.8-10.6) k/uL RBC 2.34 L (4.30-5.90) m/uL Hgb 8.0 L (13.0-17.5) gm/dL Hct 24.0 L (39.0-53.0) % MCV 102.4 H (80.0-100.0) fL MCH 34.0 (25.0-35.0) pg MCHC 33.2 (31.0-37.0) g/dL RDW 14.3 (11.5-15.5) % Plt Count 249 (150-450) k/uL MPV 7.8 Neutrophils % 66 % Lymphocytes % 21 % Monocytes % 8 % Eosinophils % 2 % Basophils % 1 % Neutrophils # 3.4 (1.3-7.7) k/uL Lymphocytes # 1.1 (1.0-4.8) k/uL Monocytes # 0.4 (0-1.0) k/uL Eosinophils # 0.1 (0-0.7) k/uL Basophils # 0.0 (0-0.2) k/uL Hypochromasia Moderate Macrocytosis Slight Sodium 137 (137-145) mmol/L Potassium 5.6 H (3.5-5.1) mmol/L Chloride 107 (98-107) mmol/L Carbon Dioxide 21 L (22-30) mmol/L Anion Gap 9 mmol/L BUN 59 H (9-20) mg/dL Creatinine 2.61 H (0.66-1.25) mg/dL Est GFR (CKD-EPI)AfAm 27 (>60 ml/min/1.73 sqM) Est GFR (CKD-EPI)NonAf 23 (>60 ml/min/1.73 sqM) Glucose 165 H (74-99) mg/dL Calcium 8.5 (8.4-10.2) mg/dL Magnesium 2.3 (1.6-2.3) mg/dL Total Bilirubin 0.2 (0.2-1.3) mg/dL AST 34 (17-59) U/L ALT 45 (4-49) U/L Alkaline Phosphatase 65 (38-126) U/L Total Protein 6.1 L (6.3-8.2) g/dL Albumin 3.9 (3.5-5.0) g/dL Blood Type A Positive Blood Type Recheck A Pos Bld Type Recheck Status No Antibody Screen NEGATIVE Spec Expiration Date 03/23/2022 - 2341 Disposition <Peewee Sanders - Last Filed: 03/20/22 16:18> Is patient prescribed a controlled substance at d/c from ED?: No Time of Disposition: 17:36 <Sandeep Castillo - Last Filed: 03/20/22 19:23> Clinical Impression: Hyperkalemia Disposition: HOME SELF-CARE Condition: Good Instructions (If sedation given, give patient instructions): Hyperkalemia (ED) Additional Instructions: Return to the emergency room with any muscle weakness, fatigue, difficulty in breathing, palpitations or chest pain. Increase your fluid intake. Follow-up with your doctor on Wednesday as scheduled. Referrals: Kirby Meng MD [Primary Care Provider] - 1-2 days Seda Holley MD [STAFF PHYSICIAN] - 1-2 days
[2022-03-20 16:28] LABS: Basophils % (A) 1 %; Eosinophils # (A) 0.1 k/uL (0-0.7); Eosinophils % (A) 2 %; Hypochromasia Moderate; Lymphocytes # (A) 1.1 k/uL (1.0-4.8); Lymphocytes % (A) 21 %; MCHC 33.2 g/dL (31.0-37.0); MCV 102.4 fL (80.0-100.0); Macrocytosis Slight; Mean Platelet Volume 7.8; Monocytes # (A) 0.4 k/uL (0-1.0); Monocytes % (A) 8 %; Neutrophils # (A) 3.4 k/uL (1.3-7.7); Neutrophils % (A) 66 %; Platelet Count 249 k/uL (150-450); RBC 2.34 m/uL (4.30-5.90); RDW 14.3 % (11.5-15.5); WBC 5.2 k/uL (3.8-10.6)
[2022-03-20 16:36] LABS: Albumin 3.9 g/dL (3.5-5.0); Calcium 8.5 mg/dL (8.4-10.2); Magnesium 2.3 mg/dL (1.6-2.3); Potassium 5.6 mmol/L (3.5-5.1); Total Bilirubin 0.2 mg/dL (0.2-1.3); Total Protein 6.1 g/dL (6.3-8.2)
[2022-03-20] MEDS ORDERED: FUROSEMIDE 10 MG/ML 2 ML VIAL IV STA (17:35)
[2022-03-20 18:11] VITALS: RESP 18
[2022-03-20 18:14] VITALS: PULSE 65
[2022-03-20 18:16] VITALS: BP 177/80; TEMP 98
== END 2022-03-20 17:59 | disposition home or self-care (01) ==
LOC: EC 11:58
DX: E87.5 Hyperkalemia (principal); E11.9 Type 2 diabetes mellitus without complications; K21.9 Gastro-esophageal reflux disease without esophagitis; E78.5 Hyperlipidemia, unspecified; I25.2 Old myocardial infarction; I12.9 Hypertensive chronic kidney disease with stage 1 through stage 4 chronic kidney disease, or unspecified chronic kidney disease; N18.9 Chronic kidney disease, unspecified; F17.200 Nicotine dependence, unspecified, uncomplicated; Z79.899 Other long term (current) drug therapy
CPT/HCPCS: 36415; 93005; 86900; 86901; 80053; 83735; 85025; 86850; 99283; 96374; J1940

== ENCOUNTER → 2022-11-12 | Outpatient (CLI) | payer MEDICARE, OTHER ==
--- NOTE | 2022-11-12 14:18 | CTL ---
EXAMINATION TYPE: CT Low Dose Lung DATE OF EXAM: 11/12/2022 1:53 PM CLINICAL INDICATION:Male, 77 years old with history of Z12.2; Personal history of tobacco use. , hist ory of tobacco use. COMPARISON: None. TECHNIQUE: Multiple axial non-contrast scans were obtained from approximately the lung apices through the upper abdomen. Coronal and sagittal reformatted images were obtained. Low dose technique was uti lized. CT DLP: 64 mGycm, Automated exposure control for dose reduction was used. CT Contrast: Contrast used: None Oral contrast used: None FINDINGS: ======== Lack of intravenous contrast and low dose technique limits the evaluation of the vascular and soft ti ssue structures. LUNGS: No evidence of pulmonary fibrosis. No evidence of focal consolidation, pneumothorax or pleural effusion. Moderate centrilobular emphysema changes. Scattered reticulation and interstitial prominen ce throughout the lungs. Nodules: RUL: None. RML: None. RLL: None. LORAINE: None. LLL: None. AIRWAY: Patent and unremarkable. HEART: Size within normal limits. There is coronary artery calcifications. MEDIASTINUM: No gross evidence of adenopathy. VASCULATURE: No aortic aneurysm. MUSCULOSKELETAL: No acute osseous abnormalities SOFT TISSUES/LYMPH NODES: Unremarkable. LOWER NECK: No significant findings. UPPER ABDOMEN: No significant findings. IMPRESSION: 1. No clinically significant pulmonary nodules. 2. Moderate emphysema changes. 3. Severe coronary artery atherosclerosis. CT LUNG RAD AND CT CHEST RECOMMENDATION: Lung-Rad 1 Negative: Continue annual screening with LDCT in 12 months. S Modifier (other clinically significant findings): S, Severe coronary artery atherosclerosis. Recommend smoking cessation (if current smoker), or continuation of smoking cessation (if prior smoke r). Annual screening for lung cancer with low-dose computed tomography is recommended in adults ages 55 to 77 years who have a 30 pack-year smoking history and currently smoke or have quit within the pa st 15 years. Screening should be discontinued once a person has not smoked for 15 years or develops a health problem that substantially limits life expectancy or the ability or willingness to have curat kannan lung surgery. Lung rads 2021 [email or web address]
== END | disposition home or self-care (01) ==
LOC: RADCTMAIN 13:25
PROVIDERS: ATTEND Internal Medicine
DX: Z12.2 Encounter for screening for malignant neoplasm of respiratory organs (principal); J43.9 Emphysema, unspecified; I25.10 Atherosclerotic heart disease of native coronary artery without angina pectoris; Z87.891 Personal history of nicotine dependence
CPT/HCPCS: 71271